=== PATIENT | male | born 1950 | race Caucasian/White ===

== ENCOUNTER 2020-04-30 09:53 | Outpatient (REF) | payer OTHER, SELFPAY ==
[2020-04-30 10:34] LABS: MANUAL DIFF FLAG NO
[2020-04-30 10:38] LABS: Basophils Absolute Auto 0.1 X10*3/uL (0.0-0.2); Basophils Percent Auto 0.7 % (0-2); Eosinophils Absolute Auto 0.1 X10*3/uL (0.0-0.4); Eosinophils Percent Auto 1.1 % (0-4); Hematocrit 48.6 % (42-52); Hemoglobin 16.6 g/dl (14.0-18.0); Imm Gran Abs Auto 0.08 X10*3/uL (0.00-0.03); Imm Gran Pct Auto 1.1 % (0.0-0.4); Lymphocytes Absolute Auto 1.9 X10*3/uL (1.2-4.9); Lymphocytes Percent Auto 26.5 % (20-40); Mean Corpuscular HGB Conc 34.2 g/dl (31.0-36.0); Mean Corpuscular Hemoglobin 30.8 pg (27.0-33.0); Mean Corpuscular Volume 90.2 fL (80-98); Mean Platelet Volume 10.9 fL (9.4-12.4); Monocytes Absolute Auto 0.9 X10*3/uL (0.1-1.2); Monocytes Percent Auto 12.1 % (2-11); Neutrophils Absolute Auto 4.2 X10*3/uL (2.0-8.3); Neutrophils Percent Auto 58.5 % (45-73); Platelet Count 165 X10*3/uL (160-400); Red Blood Count 5.39 X10*6/uL (4.60-5.80); Red Cell Distribution Width 12.3 % (11.0-16.0); White Blood Count 7.3 X10*3/uL (4.8-10.8)
[2020-04-30 11:10] LABS: Glucose Urine UA NEG (NEG); Leukocyte Esterase Urine NEG (NEG); Nitrite Urine NEG (NEG); Specific Gravity - Urine 1.025 (1.005-1.025); Urine Blood NEG (NEG); Urine Ketones NEG (NEG); Urine Protein NEG (NEG-TRACE)
[2020-04-30 11:11] LABS: Alanine Aminotransferase 32 U/L (0-40); Albumin Level 4.2 g/dL (3.5-5.0); Alkaline Phosphatase 65 U/L (39-117); Anion Gap 12 (12-20); Aspartate Amino Transferase 22 U/L (5-37); Bilirubin Total 0.6 mg/dL (0.0-1.0); Blood Urea Nitrogen 16 mg/dL (9-16); Calcium 8.2 mg/dL (8.4-10.2); Carbon Dioxide 28 mmol/L (22-29); Chloride 103 mmol/L (96-108); Estimated Glomerular Filt Rate > 60; Glucose Random 121 mg/dL (60-115); Lipase 13 U/L (8-78); Potassium 3.6 mmol/l (3.3-5.1); Sodium 139 mmol/L (135-145); Total Protein 6.5 g/dL (6.5-8.0)
[2020-04-30 11:14] LABS: Appearance Urine CLEAR; Color Urine YELLOW
[2020-04-30 11:21] LABS: Prostate Specific Antigen 0.38 ng/mL (<0.05-4.0); Thyroid Stimulating Hormone 1.45 mIU/mL (0.32-4.0)
[2020-04-30 11:24] LABS: ~HepC Num1 0.17 S/CO (0.00-0.79); ~Hepatitis C Antibody Nonreactive (Nonreactive)
== END 2020-04-30 09:54 | disposition home or self-care (01) ==
LOC: HO.LAB 09:53
PROVIDERS: PCP Internal Medicine; Visit Provider Internal Medicine
DX: E78.1 Pure hyperglyceridemia (principal); I10 Essential (primary) hypertension; Z12.5 Encounter for screening for malignant neoplasm of prostate; Z11.59 Encounter for screening for other viral diseases; D12.6 Benign neoplasm of colon, unspecified
CPT/HCPCS: 36415; 80053; 81003; 83690; 84153; 84443; 85025; 86803

== ENCOUNTER 2020-05-16 06:29 | Day surgery (SDC) | payer OTHER, SELFPAY ==
[2020-05-09 20:11] VITALS: BMI 32.5
--- NOTE | 2020-05-15 12:24 | P.CONAN_ITS ---
Documented by User: Una Diaz 05/15/20 12:25 HPI - Anesthesia Eval Consult details Narrative: 69yo M for Colonoscopy PMFSH Past Medical History Medical History (Updated 05/16/20 @ 07:54 by Luz Amos) Hypertension Increased BMI Obstructive sleep apnea syndrome in adult Tubular adenoma of colon Family History Family History Father Tubular adenoma Brother Tubular adenoma Surgical History Surgical History History of carpal tunnel surgery of right wrist History of colonoscopy History of left knee replacement Previous back surgery Social History Social History Are you a primary long term care pharmacist to a significant other at home: No Do you presently have visiting nurse or other home services: No Smoking Status: Never smoker Use of substances other than those prescribed or required for medical reasons: No Advance Directives: Yes Advance Directives Information Provided: Yes Advance Directives on File: Yes Advance Directives Date on File: 07/30/09 Meds Allergies Allergy/AdvReac Type Severity Reaction Status Date / Time lisinopril AdvReac Unknown cough Verified 04/30/20 11:08 Home Medications Medication Instructions Recorded Confirmed Type hydrochlorothiazide 25 mg tablet 25 mg PO DAILY 04/30/20 05/09/20 History valsartan 160 mg tablet 160 mg PO DAILY 04/30/20 05/16/20 History naproxen sodium [Aleve] 220 mg PO DAILY PRN 05/09/20 05/09/20 History Exam Exam Date and Time: May 15, 2020 1224 Height,Weight and Vital Signs: Height 6 ft Weight 108.862 kg Pertinent Lab Results Pertinent Lab Results: Laboratory Tests 04/30/20 04/30/20 10:20 10:20 WBC 7.3 Hgb 16.6 Hct 48.6 Plt Count 165 Sodium 139 Potassium 3.6 Chloride 103 BUN 16 Creatinine 1.08 Assessment and Plan Assessment Anesthesia Assessment: Chart Reviewed Documented by User: uLz Amos 05/16/20 07:56 [facility] Past Medical History Medical History (Updated 05/16/20 @ 07:54 by Luz Amos) Hypertension Increased BMI Obstructive sleep apnea syndrome in adult Tubular adenoma of colon Family History Family History Father Tubular adenoma Brother Tubular adenoma Family history of problems with anesthesia: No Surgical History Surgical History History of carpal tunnel surgery of right wrist History of colonoscopy History of left knee replacement Previous back surgery History of Problems with Anesthesia: No Social History Social History Are you a primary long term care pharmacist to a significant other at home: No Do you presently have visiting nurse or other home services: No Smoking Status: Never smoker Use of substances other than those prescribed or required for medical reasons: No Advance Directives: Yes Advance Directives Information Provided: Yes Advance Directives on File: Yes Advance Directives Date on File: 07/30/09 Meds Allergies Allergy/AdvReac Type Severity Reaction Status Date / Time lisinopril AdvReac Unknown cough Verified 04/30/20 11:08 Home Medications Medication Instructions Recorded Confirmed Type hydrochlorothiazide 25 mg tablet 25 mg PO DAILY 04/30/20 05/09/20 History valsartan 160 mg tablet 160 mg PO DAILY 04/30/20 05/16/20 History naproxen sodium [Aleve] 220 mg PO DAILY PRN 05/09/20 05/09/20 History Exam Height,Weight and Vital Signs: Vital Signs Temp Pulse Resp BP Pulse Ox 05/16/20 06:39 98 F 87 18 151/82 H 96 Airway Mallampati Class: II TM Dist: >3cm Neck ROM: Full Loose/Missing/Broken Teeth: No (Crowns intact) Heart: RRR Lungs: CTAB Assessment and Plan Assessment Anesthesia Assessment: Anesthesia Plan Discussed and Chart Reviewed Final Anesthetic Review NPO: Yes ASA Class: III Final Preanesthetic Review: No Changes in Pt Med Stat, Meds/Allgs Chart Reviewed, Consent Obtained/Reviewed and Anes Risks/Benef Reviewed Patient Risk: Intermediate Procedure Risk: Low Anesthetic Plan Anesthetic Plan: MAC: Disposition: Standard PACU
[2020-05-16 06:39] VITALS: BP 151/82; PULSE 87; RESP 18; TEMP 36.6; O2SAT 96
[2020-05-16] MEDS: Lactated Ringers 1,000 ML 100 ML IVCONT (06:55)
--- NOTE | 2020-05-16 07:10 | MHC.SHP ---
Pre-Procedural Eval Section A The patient is an INPATIENT: No Changes since office visit: Yes Patient answered all questions; No Cold of Flu in the past 2 weeks, No New Medical Problems and No Changes in Medication The History & Physical has been completed within 30 days and I have reviewed it.: Yes Section B Chief Complaint: tubular adenoma of colon Allergies: Allergies Allergy/AdvReac Type Severity Reaction Status Date / Time lisinopril AdvReac Unknown cough Verified 04/30/20 11:08 Plan Diagnosis/Plan: Unchanged Patient has been examined and remains a candidate for the planned procedure
[2020-05-16 08:17] VITALS: BP 104/63; PULSE 82; RESP 20; TEMP 36.5; O2SAT 94
--- NOTE | 2020-05-16 08:25 | P.OP_ITS ---
Operative Note Operative Note Date of Service: 05/16/20 Narrative: Preoperative diagnosis: History of colon polyps Postoperative diagnosis: Diverticulosis and internal hemorrhoids Procedure: Colonoscopy Anesthesia: Monitored anesthesia care Specimens: None Estimated blood loss: None Other findings: None Immediate complications: None Indications: This is a 69-year-old gentleman with a history of adenomatous polyps who presents for routine colonoscopy Procedure in detail: Patient in left lateral decubitus position, time-out procedure was performed. Adequate sedation was then obtained. Rectal examination was performed and was unremarkable. The flexible pediatric co lonoscope was introduced and was gradually advanced through the bowel to the level of the cecum. The prep was good, with some particulate matter remaining half that could be irrigated away. Good visualization was obtained. The cecal pouch, ileocecal valve and appendiceal orifice were visualized and appeared normal. The ileocecal valve was intubated. The terminal ileum also appeared normal. The scope was then drawn back into the cecum and was slowly withdrawn, visualizing all mucosal surfaces, was retroflexed within the rectum and was then straightened and withdrawn. Scattered diverticulosis was seen, primarily in the left and sigmoid colon. Internal hemorrhoids were present. No other abnormalities were identified. He tolerated the procedure well. Based upon findings and history, next routine colonoscopy will be due in 5 years.
[2020-05-16 08:31] VITALS: BP 113/76; PULSE 87; RESP 20; TEMP 36.6; O2SAT 92
--- NOTE | 2020-05-16 08:51 | HO.POSTANES ---
Post Anesthesia Evaluation Post Anesthesia Evaluation Vital Signs: Vital Signs Temp Pulse Resp BP Pulse Ox 05/16/20 08:31 97.9 F 87 20 113/76 92 05/16/20 08:17 97.7 F 82 20 104/63 94 05/16/20 06:39 98 F 87 18 151/82 H 96 Anesthesia: Monitored Mental Status: Awake Pain Control: Satisfactory Nausea/Vomiting: None Hydration: Adequate Anesthesia-Related Issues: No Anes. Related Issues
== END 2020-05-16 08:55 | disposition home or self-care (01) ==
PROVIDERS: PCP Internal Medicine; Visit Provider Surgery
PROC: 0DJD8ZZ Inspection of Lower Intestinal Tract, Via Natural or Artificial Opening Endoscopic (ICD-10-PCS; CPT 45378; principal; 2020-05-16 07:30)
DX: Z12.11 Encounter for screening for malignant neoplasm of colon (principal); Z86.010 Personal history of colon polyps; K57.30 Diverticulosis of large intestine without perforation or abscess without bleeding; K64.8 Other hemorrhoids; I10 Essential (primary) hypertension; G47.33 Obstructive sleep apnea (adult) (pediatric); Z79.899 Other long term (current) drug therapy; Z88.8 Allergy status to other drugs, medicaments and biological substances
CPT/HCPCS: 45378

== ENCOUNTER → 2020-06-11 13:46 | Outpatient (BNVA) | payer OTHER, SELFPAY | PROVIDERS: PCP Internal Medicine; Visit Provider Internal Medicine | DX: Z77.21 Contact with and (suspected) exposure to potentially hazardous body fluids (principal) | CPT/HCPCS: 36415; 84450; 85025; 86803; 87389 ==

== ENCOUNTER 2020-06-19 11:09 | Outpatient (REF) | payer OTHER, SELFPAY ==
[2020-06-19 12:09] LABS: MANUAL DIFF FLAG NO
[2020-06-19 12:15] LABS: Basophils Percent Auto 0.4 % (0-2); Eosinophils Percent Auto 0.3 % (0-4); Hematocrit 49.9 % (42-52); Hemoglobin 16.9 g/dl (14.0-18.0); Imm Gran Abs Auto 0.07 X10*3/uL (0.00-0.03); Imm Gran Pct Auto 0.8 % (0.0-0.4); Lymphocytes Absolute Auto 1.9 X10*3/uL (1.2-4.9); Lymphocytes Percent Auto 20.6 % (20-40); Mean Corpuscular HGB Conc 33.9 g/dl (31.0-36.0); Mean Corpuscular Hemoglobin 30.6 pg (27.0-33.0); Mean Corpuscular Volume 90.4 fL (80-98); Mean Platelet Volume 11.4 fL (9.4-12.4); Monocytes Percent Auto 11.2 % (2-11); Neutrophils Percent Auto 66.7 % (45-73); Platelet Count 187 X10*3/uL (160-400); Red Blood Count 5.52 X10*6/uL (4.60-5.80); Red Cell Distribution Width 12.5 % (11.0-16.0)
[2020-06-19 12:20] LABS: Estimated Average Glucose 108 mg/dL; Hemoglobin A1c % 5.4 %
[2020-06-19 12:22] LABS: Glucose Urine UA NEG (NEG); Leukocyte Esterase Urine NEG (NEG); Nitrite Urine NEG (NEG); Specific Gravity - Urine >= 1.030 (1.005-1.025); Urine Blood NEG (NEG); Urine Ketones NEG (NEG); Urine Protein NEG (NEG-TRACE)
[2020-06-19 12:23] LABS: Appearance Urine CLEAR; Color Urine YELLOW
[2020-06-19 12:51] LABS: Cholesterol 173 mg/dL; Glucose Fasting 105 mg/dL (60-99); HDL Cholesterol 47 mg/dL; LDL Cholesterol Calculated 109 mg/dl; Triglycerides 87 mg/dL
== END 2020-06-19 11:10 | disposition home or self-care (01) ==
LOC: HO.LAB 11:09
PROVIDERS: PCP Internal Medicine; Visit Provider Internal Medicine
DX: E78.1 Pure hyperglyceridemia (principal); R73.01 Impaired fasting glucose; R10.9 Unspecified abdominal pain
CPT/HCPCS: 36415; 80061; 81003; 82947; 83036; 85025; 87086

== ENCOUNTER 2020-07-23 08:50 | Outpatient (REF) | payer OTHER, SELFPAY ==
--- NOTE | 2020-07-23 | US_ITS ---
EXAMINATION: US ABDOMINAL AORTA CLINICAL INFORMATION: Evaluate for aneurysm. History of smoking. COMPARISON: None TECHNIQUE: Routine retroperitoneal ultrasound of the abdominal aorta was performed. FINDINGS: The abdominal aorta is normal in course with a few echogenic atherosclerotic plaques seen. The proximal abdominal aorta measures 3.0 x 3.0 cm in AP and transverse dimensions. The mid abdominal aorta measures 2.8 x 2.0 cm in AP and transverse dimensions. The distal abdominal aorta measures 2.1 x 2.8 cm in AP and transverse dimensions. Peak systolic velocity of the abdominal aorta measures 83.2 cm. The right common iliac artery measures 1.2 cm and the left common iliac artery measures 1.2 cm. US/US abdominal aortic aneurysm IMPRESSION: No evidence of AAA. Small amount of atherosclerotic plaque in the abdominal aorta.
== END 2020-07-23 08:51 | disposition home or self-care (01) ==
LOC: HO.US 08:50
PROVIDERS: PCP Internal Medicine; Visit Provider Internal Medicine
DX: Z13.6 Encounter for screening for cardiovascular disorders (principal)
CPT/HCPCS: 76706

== ENCOUNTER 2020-11-14 08:15 | Outpatient (REF) | payer OTHER, SELFPAY ==
[2020-11-14 08:44] LABS: Glucose Urine UA NEG (NEG); Leukocyte Esterase Urine NEG (NEG); Nitrite Urine NEG (NEG); Specific Gravity - Urine 1.025 (1.005-1.025); Urine Blood NEG (NEG); Urine Ketones NEG (NEG); Urine Protein NEG (NEG-TRACE)
[2020-11-14 08:46] LABS: Hematocrit 48.8 % (42-52); Hemoglobin 16.6 g/dl (14.0-18.0); Mean Corpuscular Hemoglobin 30.8 pg (27.0-33.0); Mean Corpuscular Volume 90.5 fL (80-98); Mean Platelet Volume 11.3 fL (9.4-12.4); Platelet Count 159 X10*3/uL (160-400); Red Blood Count 5.39 X10*6/uL (4.60-5.80); Red Cell Distribution Width 12.8 % (11.0-16.0); White Blood Count 7.4 X10*3/uL (4.8-10.8)
[2020-11-14 08:47] LABS: Appearance Urine CLEAR; Color Urine YELLOW
[2020-11-14 09:07] LABS: Alanine Aminotransferase 34 U/L (0-40); Albumin Level 4.3 g/dL (3.5-5.0); Alkaline Phosphatase 69 U/L (39-117); Anion Gap 15 (12-20); Aspartate Amino Transferase 23 U/L (5-37); Bilirubin Total 0.7 mg/dL (0.0-1.0); Blood Urea Nitrogen 12 mg/dL (9-16); Calcium 9.1 mg/dL (8.4-10.2); Carbon Dioxide 27 mmol/L (22-29); Chloride 102 mmol/L (96-108); Cholesterol 179 mg/dL; Estimated Glomerular Filt Rate > 60; Glucose Random 119 mg/dL (60-115); HDL Cholesterol 41 mg/dL; LDL Cholesterol Calculated 114 mg/dl; Potassium 3.5 mmol/L (3.3-5.1); Sodium 140 mmol/L (135-145); Total Protein 6.5 g/dL (6.5-8.0); Triglycerides 120 mg/dL
[2020-11-14 09:22] LABS: Estimated Average Glucose 111 mg/dL; Hemoglobin A1c % 5.5 %; Thyroid Stimulating Hormone 1.72 uIU/mL (0.32-4.0)
== END 2020-11-14 08:16 | disposition home or self-care (01) ==
LOC: HO.LAB 08:15
PROVIDERS: PCP Internal Medicine; Visit Provider Internal Medicine
DX: I10 Essential (primary) hypertension (principal); R73.01 Impaired fasting glucose; E78.1 Pure hyperglyceridemia
CPT/HCPCS: 36415; 80053; 80061; 81003; 83036; 84443; 85027

== ENCOUNTER 2021-05-20 11:07 | Outpatient (REF) | payer OTHER, SELFPAY ==
[2021-05-20 11:40] LABS: Hematocrit 47.3 % (42.0-52.0); Hemoglobin 16.1 g/dl (14.0-18.0); Mean Corpuscular Hemoglobin 31.1 pg (27.0-33.0); Mean Corpuscular Volume 91.5 fL (80.0-98.0); Mean Platelet Volume 11.4 fL (9.4-12.4); Platelet Count 158 X10*3/uL (160-400); Red Blood Count 5.17 X10*6/uL (4.60-5.80); Red Cell Distribution Width 12.7 % (11.0-16.0); White Blood Count 8.7 X10*3/uL (4.8-10.8)
[2021-05-20 12:09] LABS: Alanine Aminotransferase 36 U/L (0-40); Albumin Level 4.1 g/dL (3.5-5.0); Alkaline Phosphatase 64 U/L (39-117); Anion Gap 11 (12-20); Aspartate Amino Transferase 24 U/L (5-37); Bilirubin Total 1.2 mg/dL (0.0-1.0); Blood Urea Nitrogen 16 mg/dL (9-16); Calcium 9.1 mg/dL (8.4-10.2); Carbon Dioxide 27 mmol/L (22-29); Chloride 106 mmol/L (96-108); Cholesterol 175 mg/dL; Estimated Glomerular Filt Rate > 60; Glucose Random 110 mg/dL (60-115); HDL Cholesterol 43 mg/dL; LDL Cholesterol Calculated 108 mg/dl; Potassium 4.3 mmol/L (3.3-5.1); Sodium 140 mmol/L (135-145); Total Protein 6.4 g/dL (6.5-8.0); Triglycerides 123 mg/dL
[2021-05-20 12:30] LABS: Prostate Specific Antigen 0.37 ng/mL (<0.05-4.0); Thyroid Stimulating Hormone 1.88 uIU/mL (0.32-4.0)
[2021-05-20 13:57] LABS: Appearance Urine CLEAR; Color Urine YELLOW; Glucose Urine UA NEG (NEG); Leukocyte Esterase Urine NEG (NEG); Nitrite Urine NEG (NEG); Urine Blood NEG (NEG); Urine Ketones NEG (NEG); Urine Protein NEG (NEG-TRACE)
== END 2021-05-20 11:08 | disposition home or self-care (01) ==
LOC: HO.LAB 11:07
PROVIDERS: PCP Internal Medicine; Visit Provider Internal Medicine
DX: E78.00 Pure hypercholesterolemia, unspecified (principal); I10 Essential (primary) hypertension; Z12.5 Encounter for screening for malignant neoplasm of prostate
CPT/HCPCS: 36415; 80053; 80061; 81003; 84153; 84443; 85027

== ENCOUNTER 2021-10-09 09:03 | Outpatient (REF) | payer OTHER, SELFPAY ==
[2021-10-09 11:34] LABS: Estimated Average Glucose 108 mg/dL; Hemoglobin A1c % 5.4 %
[2021-10-09 11:52] LABS: Alanine Aminotransferase 66 U/L (0-40); Albumin Level 4.4 g/dL (3.5-5.0); Alkaline Phosphatase 76 U/L (39-117); Anion Gap 14 (12-20); Aspartate Amino Transferase 32 U/L (5-37); Blood Urea Nitrogen 18 mg/dL (9-16); Calcium 9.4 mg/dL (8.4-10.2); Carbon Dioxide 27 mmol/L (22-29); Chloride 106 mmol/L (96-108); Cholesterol 194 mg/dL; Estimated Glomerular Filt Rate > 60; Glucose Random 112 mg/dL (60-115); HDL Cholesterol 39 mg/dL; LDL Cholesterol Calculated 140 mg/dl; Magnesium 2.4 mg/dL (1.6-2.6); Potassium 4.5 mmol/L (3.3-5.1); Sodium 142 mmol/L (135-145); Total Protein 6.9 g/dL (6.5-8.0); Triglycerides 75 mg/dL
== END 2021-10-09 09:04 | disposition home or self-care (01) ==
LOC: HO.LAB 09:03
PROVIDERS: PCP Internal Medicine; Visit Provider Internal Medicine
DX: I10 Essential (primary) hypertension (principal); R73.01 Impaired fasting glucose
CPT/HCPCS: 36415; 80053; 80061; 83036; 83735

== ENCOUNTER → 2021-10-30 09:53 | Outpatient (BNVA) | payer OTHER, SELFPAY | PROVIDERS: PCP Internal Medicine; Referring Provider Internal Medicine; Visit Provider Internal Medicine | DX: I25.10 Atherosclerotic heart disease of native coronary artery without angina pectoris (principal); I10 Essential (primary) hypertension; I44.0 Atrioventricular block, first degree; G47.33 Obstructive sleep apnea (adult) (pediatric); E78.5 Hyperlipidemia, unspecified; E66.01 Morbid (severe) obesity due to excess calories; Z68.34 Body mass index [BMI] 34.0-34.9, adult | CPT/HCPCS: 93005 ==

== ENCOUNTER 2021-12-04 09:21 | Outpatient (REF) | payer OTHER, SELFPAY ==
[2021-12-04 11:02] LABS: Alanine Aminotransferase 41 U/L (0-40); Aspartate Amino Transferase 25 U/L (5-37); Glucose Fasting 112 mg/dL (60-99)
== END 2021-12-04 09:22 | disposition home or self-care (01) ==
LOC: HO.LAB 09:21
PROVIDERS: PCP Internal Medicine; Visit Provider Internal Medicine
DX: R94.5 Abnormal results of liver function studies (principal); R73.01 Impaired fasting glucose
CPT/HCPCS: 36415; 82947; 84450; 84460

== ENCOUNTER 2022-02-23 08:57 | Outpatient (REF) | payer OTHER, SELFPAY ==
[2022-02-23 11:35] LABS: Alanine Aminotransferase 38 U/L (0-40); Albumin Level 4.4 g/dL (3.5-5.0); Alkaline Phosphatase 81 U/L (39-117); Anion Gap 17 (12-20); Aspartate Amino Transferase 25 U/L (5-37); Bilirubin Total 1.3 mg/dL (0.0-1.0); Blood Urea Nitrogen 16 mg/dL (9-16); Calcium 9.3 mg/dL (8.4-10.2); Carbon Dioxide 26 mmol/L (22-29); Chloride 102 mmol/L (96-108); Cholesterol 143 mg/dL; Estimated Glomerular Filt Rate > 60; Glucose Random 101 mg/dL (60-115); HDL Cholesterol 46 mg/dL; LDL Cholesterol Calculated 78 mg/dl; Potassium 4.3 mmol/L (3.3-5.1); Sodium 141 mmol/L (135-145); Total Protein 6.9 g/dL (6.5-8.0); Triglycerides 97 mg/dL
[2022-02-23 11:38] LABS: Estimated Average Glucose 103 mg/dL; Hemoglobin A1c % 5.2 %
== END 2022-02-23 08:58 | disposition home or self-care (01) ==
LOC: HO.LAB 08:57
PROVIDERS: PCP Internal Medicine; Visit Provider Internal Medicine
DX: R73.01 Impaired fasting glucose (principal); E78.00 Pure hypercholesterolemia, unspecified
CPT/HCPCS: 36415; 80053; 80061; 83036

== ENCOUNTER 2022-06-25 06:57 | Outpatient (REF) | payer OTHER, SELFPAY ==
--- NOTE | ~2022-06-25 | XR_ITS ---
EXAMINATION: XR FOOT, RIGHT CLINICAL INFORMATION: Pain at the right 1st MTP joint region. COMPARISON: None TECHNIQUE: AP, lateral, and oblique views of the right foot. FINDINGS: Kaejokfg-bq-rswcbd osteoarthritic changes are noted at 1st MTP joint with narrowing of the joint space, subarticular sclerosis and irregularity of the articular margins as well as marginal osteophytic changes. No focal erosion is seen. No evidence of soft tissue calcifications. Normal osseous mineralization. No evidence of acute fracture or dislocation. As seen on the lateral view there is a prominent osteophyte with an adjacent well-corticated 1.2 cm ossification on the dorsal aspect of the head of the 1st metatarsal with surrounding mild soft tissue swelling. Small posterior and plantar calcaneal spurs. XR/XR foot RT min 3V IMPRESSION: Euohfjtt-xp-tupvsk arthritic changes at the right 1st MTP joint with prominent osteophytes as well as a 1.2 cm well-corticated ossific density on the dorsal aspect of the 1st metatarsal head which may represent an osteophyte or sequela of prior trauma.
== END 2022-06-25 06:58 | disposition home or self-care (01) ==
LOC: HO.XRAY 06:57
PROVIDERS: PCP Internal Medicine; Visit Provider Internal Medicine
DX: M79.671 Pain in right foot (principal)
CPT/HCPCS: 73630

== ENCOUNTER 2022-11-11 07:00 | Outpatient (REF) | payer OTHER, SELFPAY ==
[2022-11-11 07:15] LABS: MANUAL DIFF FLAG NO
[2022-11-11 08:10] LABS: Basophils Absolute Auto 0.1 X10*3/uL (0.0-0.2); Basophils Percent Auto 0.8 % (0-2); Eosinophils Absolute Auto 0.2 X10*3/uL (0.0-0.4); Eosinophils Percent Auto 1.7 % (0-4); Hemoglobin 16.3 g/dl (14.0-18.0); Imm Gran Abs Auto 0.12 X10*3/uL (0.00-0.03); Imm Gran Pct Auto 1.3 % (0.0-0.4); Lymphocytes Absolute Auto 2.2 X10*3/uL (1.2-4.9); Lymphocytes Percent Auto 22.7 % (20-40); Mean Corpuscular Hemoglobin 30.9 pg (27.0-33.0); Mean Corpuscular Volume 90.9 fL (80.0-98.0); Mean Platelet Volume 11.7 fL (9.4-12.4); Monocytes Absolute Auto 1.1 X10*3/uL (0.1-1.2); Monocytes Percent Auto 11.4 % (2-11); Neutrophils Absolute Auto 5.9 x10*3/uL (2.0-8.3); Neutrophils Percent Auto 62.1 % (45-73); Platelet Count 167 X10*3/uL (160-400); Red Blood Count 5.28 X10*6/uL (4.60-5.80); Red Cell Distribution Width 12.9 % (11.0-16.0); White Blood Count 9.5 X10*3/uL (4.8-10.8)
[2022-11-11 08:11] LABS: Appearance Urine Clear; Color Urine Yellow; Glucose Urine UA Negative (Negative); Leukocyte Esterase Urine Negative (Negative); Nitrite Urine Negative (Negative); PH 5.5 (5.0-9.0); Specific Gravity - Urine 1.025 (1.005-1.025); Urine Blood Negative (Negative); Urine Ketones Negative (Negative); Urine Protein Negative (Neg-Trace)
[2022-11-11 08:58] LABS: Alanine Aminotransferase 40 U/L (0-40); Albumin Level 4.2 g/dL (3.5-5.0); Alkaline Phosphatase 84 U/L (39-117); Anion Gap 13 (12-20); Aspartate Amino Transferase 25 U/L (5-37); Bilirubin Total 1.1 mg/dL (0.0-1.0); Blood Urea Nitrogen 18 mg/dL (9-16); Calcium 9.5 mg/dL (8.4-10.2); Carbon Dioxide 28 mmol/L (22-29); Chloride 104 mmol/L (96-108); Cholesterol 137 mg/dL; Estimated Glomerular Filt Rate > 60; Glucose Random 109 mg/dL (60-115); HDL Cholesterol 36 mg/dL; LDL Cholesterol Calculated 72 mg/dl; Potassium 3.8 mmol/L (3.3-5.1); Sodium 141 mmol/L (135-145); Total Protein 6.3 g/dL (6.5-8.0); Triglycerides 146 mg/dL
[2022-11-11 09:17] LABS: Thyroid Stimulating Hormone 2.64 uIU/mL (0.32-4.0)
== END 2022-11-11 07:01 | disposition home or self-care (01) ==
LOC: HO.LAB 07:00
PROVIDERS: PCP Internal Medicine; Visit Provider Internal Medicine
DX: I10 Essential (primary) hypertension (principal); R73.01 Impaired fasting glucose; E78.00 Pure hypercholesterolemia, unspecified
CPT/HCPCS: 36415; 80053; 80061; 81003; 84443; 85025

== ENCOUNTER → 2022-12-03 13:17 | Outpatient (BNVA) | payer OTHER, SELFPAY | PROVIDERS: PCP Internal Medicine; Referring Provider Internal Medicine; Visit Provider Internal Medicine | DX: I25.10 Atherosclerotic heart disease of native coronary artery without angina pectoris (principal); I10 Essential (primary) hypertension; I44.0 Atrioventricular block, first degree | CPT/HCPCS: 93005 ==

== ENCOUNTER → 2023-01-13 12:56 | Outpatient (REF) | payer OTHER, SELFPAY | LOC: HO.SL 12:56 | PROVIDERS: PCP Internal Medicine; Visit Provider Internal Medicine | DX: G47.33 Obstructive sleep apnea (adult) (pediatric) (principal) | CPT/HCPCS: 95806 ==

== ENCOUNTER → 2023-01-13 13:12 | Outpatient (BNV) | payer OTHER, SELFPAY | PROVIDERS: PCP Internal Medicine; Visit Provider Internal Medicine | DX: G47.33 Obstructive sleep apnea (adult) (pediatric) (principal) | CPT/HCPCS: 95806 ==

== ENCOUNTER 2023-05-27 08:18 | Outpatient (REF) | payer OTHER, SELFPAY ==
--- NOTE | ~2023-05-27 | XR_ITS ---
EXAMINATION: UPRIGHT VIEWS OF BOTH KNEES 2 VIEWS OF THE RIGHT KNEE CLINICAL INFORMATION: Reason for Exam M25.569 - Pain in unspecified knee. COMPARISON: X-rays of the knees 04/19/2018. TECHNIQUE: Upright AP view of both knees. Additional patella and lateral upright view of the right knee. FINDINGS: RIGHT KNEE: Medial compartment: There is joint space narrowing and marginal osteophytes indicative of cjat-fy-qfrocmrr osteoarthritis with degenerative changes increased compared to prior. Lateral compartment: Small marginal osteophytes without joint space narrowing indicative of mild arthrosis unchanged. Patellofemoral compartment: Marginal osteophytes with subchondral cystic change without joint space narrowing. Overall ibjc-es-perrnuky arthrosis. Trace effusion. Small areas of calcification or ossification posterior to the proximal tibia. This could reflect loose bodies within a Dockery's cyst versus unrelated soft tissue calcification. LEFT KNEE LIMITED AP UPRIGHT: Postoperative changes related to unicompartmental arthroplasty of the medial compartment. The components have the usual appearance. No periprosthetic fracture or suspicious area of lucency. XR/XR knee standing BI IMPRESSION: RIGHT KNEE: Tricompartmental osteoarthritis with degenerative changes most prominent in the medial compartment being yvzq-bh-zhylllyr and likely slightly progressed compared with the 2018 x-ray. LEFT KNEE Limited: 1. Tricompartmental arthroplasty without complication by x-ray. 2. Possible loose bodies within a Dockery's cyst versus soft tissue calcification.
--- NOTE | ~2023-05-27 | XR_ITS ---
EXAMINATION: UPRIGHT VIEWS OF BOTH KNEES 2 VIEWS OF THE RIGHT KNEE CLINICAL INFORMATION: Reason for Exam M25.569 - Pain in unspecified knee. COMPARISON: X-rays of the knees 04/19/2018. TECHNIQUE: Upright AP view of both knees. Additional patella and lateral upright view of the right knee. FINDINGS: RIGHT KNEE: Medial compartment: There is joint space narrowing and marginal osteophytes indicative of iloq-lq-dsnqmdig osteoarthritis with degenerative changes increased compared to prior. Lateral compartment: Small marginal osteophytes without joint space narrowing indicative of mild arthrosis unchanged. Patellofemoral compartment: Marginal osteophytes with subchondral cystic change without joint space narrowing. Overall ctcr-md-icnrznce arthrosis. Trace effusion. Small areas of calcification or ossification posterior to the proximal tibia. This could reflect loose bodies within a Dockery's cyst versus unrelated soft tissue calcification. LEFT KNEE LIMITED AP UPRIGHT: Postoperative changes related to unicompartmental arthroplasty of the medial compartment. The components have the usual appearance. No periprosthetic fracture or suspicious area of lucency. XR/XR knee RT 2V IMPRESSION: RIGHT KNEE: Tricompartmental osteoarthritis with degenerative changes most prominent in the medial compartment being sfsd-db-iadwzjaw and likely slightly progressed compared with the 2018 x-ray. LEFT KNEE Limited: 1. Tricompartmental arthroplasty without complication by x-ray. 2. Possible loose bodies within a Dockery's cyst versus soft tissue calcification.
== END 2023-05-27 08:19 | disposition home or self-care (01) ==
LOC: HO.HOSX 08:18
PROVIDERS: Visit Provider Orthopaedic Surgery
DX: M17.11 Unilateral primary osteoarthritis, right knee (principal)
CPT/HCPCS: 20610; 73560; 73565; J0665; J1100

== ENCOUNTER 2023-05-27 08:23 | Outpatient (AMB) | payer OTHER, SELFPAY ==
--- NOTE | 2023-05-27 08:35 | A.OFFVIS_ITS ---
Intake Intake Visit Reasons: New Prob - Right Knee Pain Intake Note: Cedric is a 72 year old male who presents today with complaints of right knee pain. He has pain in the right knee for months now, over the lastr month his pain has became particularly worse. He has pain and clicking with ambulation. Pain is increased with prolonged walking and standing. He takes Aleve in the morning which gives mild relief. Allergies No Known Allergies Allergy (Verified 05/27/23 08:37) HPI New Prob - Right Knee Pain HPI Details Cedric is a 72 year old man who presents with complaints of right knee pain. He complains of several months of right knee pain, worse with prolonged walking, standing, or using stairs. He says his pain became worse muhammad usual in the last month, and he is concerned about a clicking sensation in his knee. He finds mild relief from Aleve in the mornings, and denies any other treatment. FORMERLY [facility], [facility] Medical History (Updated 06/04/23 @ 10:53 by Mao Castro MD) Atherosclerotic cardiovascular disease Increased BMI Obstructive sleep apnea syndrome in adult Tubular adenoma of colon Hypertension Surgical History History of carpal tunnel surgery of right wrist History of colonoscopy History of left knee replacement Previous back surgery Family History Father Tubular adenoma Brother Tubular adenoma Social History Are you a primary wound care physician to a significant other at home: No Do you presently have visiting nurse or other home services: No Alcohol intake: current Alcohol intake frequency: a few times a week Alcohol type: beer Patient Tobacco Use Status: Former Tobacco user Quit Date: 1982 Years Smoked: 15 +/- Advance Directives Date on File: 07/30/09 Review of Systems Const All systems reviewed & are unremarkable except as noted in HPI and below Physical Exam Const General: no acute distress, alert and awake Orientation/consciousness: patient oriented x3 HEENT Head: Yes normocephalic and Yes atraumatic Eyes EOM: EOMs intact bilaterally Resp Effort & Inspection: normal respiratory effort and able to speak in complete sentences Cardio Jugular venous distension: no JVD Skin General skin exam: turgor normal Rashes: no rashes Neuro General: patient oriented x3 Extrem Other: Right Knee: Medial compartment TTP Varus alignement Minimal effusion Psych Appearance: grossly normal Affect: normal affect Attitude: cooperative Office Procedures Joint Injection/Drain Joint Injection/Drain Details: Injected 1 mL of Decadron and 3 mL 1% lidocaine and 3 mL of 0.25% Marcaine. Site was prepped using aseptic technique. Patient tolerated the procedure well. Primary Site: right knee Approach Used: anterolateral Coding - Large joint Procedure code (CPT) selection complete Results Reviewed Results Reviewed: I personally reviewed relevant radiographs Medial compartment OA right knee Assessment & Plan Assessment & Plan (1) Arthritis of right knee: Code(s): M17.11 - Unilateral primary osteoarthritis, right knee Plan: This is a 72 year old man with right knee pain. He has pain with daily activity, worse with prolonged ambulation, standing, and stairs. He denies any prior treatment and finds mild relief from Aleve. I discussed his diagnosis and treatment options. I injected his right knee. 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 Orders: Orders XR knee standing BI 05/27/23 M25.569 - Pain in unspecified knee XR knee RT 2V 05/27/23 M25.569 - Pain in unspecified knee Coding Level of Care Code New Pt Level 3 (74025) Diagnoses Arthritis of right knee M17.11 CPT Codes Coding - Large joint: 86463 - Large joint ([id number])
== END 2023-05-27 09:26 | disposition home or self-care (01) ==
PROVIDERS: PCP Internal Medicine; Visit Provider Orthopaedic Surgery
DX: M17.11 Unilateral primary osteoarthritis, right knee (principal)
CPT/HCPCS: 20610; 99203

== ENCOUNTER 2023-05-28 07:17 | Outpatient (REF) | payer OTHER, SELFPAY ==
[2023-05-28 07:31] LABS: MANUAL DIFF FLAG NO
[2023-05-28 07:44] LABS: Basophils Percent Auto 0.3 % (0-2); Eosinophils Percent Auto 0.3 % (0-4); Hematocrit 48.2 % (42.0-52.0); Hemoglobin 16.5 g/dl (14.0-18.0); Imm Gran Abs Auto 0.11 X10*3/uL (0.00-0.03); Imm Gran Pct Auto 0.8 % (0.0-0.4); Lymphocytes Absolute Auto 2.7 X10*3/uL (1.2-4.9); Lymphocytes Percent Auto 18.5 % (20-40); Mean Corpuscular HGB Conc 34.2 g/dl (31.0-36.0); Mean Corpuscular Hemoglobin 30.4 pg (27.0-33.0); Mean Corpuscular Volume 88.9 fL (80.0-98.0); Monocytes Absolute Auto 1.4 X10*3/uL (0.1-1.2); Monocytes Percent Auto 9.9 % (2-11); Neutrophils Absolute Auto 10.1 x10*3/uL (2.0-8.3); Neutrophils Percent Auto 70.2 % (45-73); Platelet Count 189 X10*3/uL (160-400); Red Blood Count 5.42 X10*6/uL (4.60-5.80); Red Cell Distribution Width 12.6 % (11.0-16.0); White Blood Count 14.3 X10*3/uL (4.8-10.8)
[2023-05-28 07:58] LABS: Estimated Average Glucose 108 mg/dL; Hemoglobin A1c % 5.4 % (<6.0)
[2023-05-28 08:17] LABS: Alanine Aminotransferase 36 U/L (0-40); Albumin Level 4.3 g/dL (3.5-5.0); Alkaline Phosphatase 86 U/L (39-117); Anion Gap 12 (12-20); Aspartate Amino Transferase 24 U/L (5-37); Bilirubin Total 1.2 mg/dL (0.0-1.0); Blood Urea Nitrogen 19 mg/dL (9-16); Calcium 9.3 mg/dL (8.4-10.2); Carbon Dioxide 29 mmol/L (22-29); Chloride 103 mmol/L (96-108); Cholesterol 164 mg/dL (<200); Estimated Glomerular Filt Rate > 60; Glucose Random 117 mg/dL (60-115); HDL Cholesterol 45 mg/dL (>40); LDL Cholesterol Calculated 100 mg/dL (<100); Potassium 4.1 mmol/L (3.3-5.1); Sodium 140 mmol/L (135-145); Triglycerides 95 mg/dL (<150)
[2023-05-28 08:37] LABS: Thyroid Stimulating Hormone 1.43 uIU/mL (0.32-4.0)
== END 2023-05-28 07:18 | disposition home or self-care (01) ==
LOC: HO.LAB 07:17
PROVIDERS: Visit Provider Internal Medicine
DX: I10 Essential (primary) hypertension (principal); R73.01 Impaired fasting glucose; E78.00 Pure hypercholesterolemia, unspecified
CPT/HCPCS: 36415; 80053; 80061; 83036; 84443; 85025

== ENCOUNTER 2023-07-02 12:49 | Outpatient (AMB) | payer OTHER, SELFPAY ==
--- NOTE | 2023-07-02 12:51 | MHC.OFFVIS ---
Intake Vital Signs 07/02/23 13:10 Height 5 ft 11 in Weight 251 lb BMI 35.0 Intake Visit Reasons: OV- Right Knee Pain Intake Note: Cedric is a 72 year old male who presents today for a follow up of his right knee pain, Last injection 05/27/2023. At his last visit we discussed a possible unloading brace. Patient states that there was no improvement after the last injection. Patient states that he would like to have an MRI done. Allergies No Known Allergies Allergy (Verified 07/02/23 13:13) HPI OV- Right Knee Pain HPI Details I injected Cedric's knee ~ 5 weeks ago and he is feeling ok'. He has good days and bad days but the past few days have been surya. He describes pain in his medial right knee. It is worse with stairs and after not moving. He has medial compartment OA on the right and, on the left, had a UKA several years ago at an [facility]. [facility] Medical History Atherosclerotic cardiovascular disease Increased BMI Obstructive sleep apnea syndrome in adult Tubular adenoma of colon Hypertension Surgical History History of colonoscopy History of carpal tunnel surgery of right wrist History of left knee replacement Previous back surgery Family History Father Tubular adenoma Brother Tubular adenoma Social History Are you a primary pediatric care coordinator to a significant other at home: No Do you presently have visiting nurse or other home services: No Alcohol intake: current Alcohol intake frequency: a few times a week Alcohol type: beer Patient Tobacco Use Status: Former Tobacco user Quit Date: 1982 Years Smoked: 15 +/- Advance Directives Date on File: 07/30/09 Physical Exam Vital Signs: BMI result Body Mass Index 35.0 Extrem Other: TTP medial compartment right knee 1+ effusion right knee 1+ Varus instability right knee Assessment & Plan Assessment & Plan (1) Knee effusion, right: Code(s): M25.461 - Effusion, right knee Plan: MRI for effusion and complaints of catching, clicking. I recommend viscosupplementation as steroid not helpful. Medial unloading brace for varus instability. Orders: Orders MR knee RT wo con Today M25.461 - Effusion, right knee Coding Level of Care Code Est Pt Level 4 (54494) Diagnoses Knee effusion, right M25.461
[2023-07-02 13:10] VITALS: BMI 35.0
== END 2023-07-02 14:22 | disposition home or self-care (01) ==
PROVIDERS: PCP Internal Medicine; Visit Provider Orthopaedic Surgery
DX: M25.461 Effusion, right knee (principal)
CPT/HCPCS: 99214

== ENCOUNTER → 2023-07-02 12:49 | Outpatient (BNVA) | payer OTHER, SELFPAY | PROVIDERS: PCP Internal Medicine; Visit Provider Orthopaedic Surgery ==

== ENCOUNTER 2023-07-05 17:55 | Outpatient (REF) | payer OTHER, SELFPAY ==
--- NOTE | ~2023-07-05 | MR_ITS ---
EXAMINATION: MR KNEE WITHOUT CONTRAST, RIGHT CLINICAL INFORMATION: Effusion right knee. COMPARISON: X-ray the right knee April 2023. TECHNIQUE: MRI of the knee without contrast was performed using routine sequences on a high-field scanner. FINDINGS: MENISCI: Medial Meniscus: There is oblique increased signal extending to the posterior tibial articular surface of the posterior horn involving the middle 1-2/3 portion of the posterior horn. There is also heterogeneous increased signal throughout the body of the meniscus with likely extension to the tibial articular surface. Overall findings indicative of tearing of the posterior horn and body. Lateral Meniscus: Intact. LIGAMENTS: Cruciate: Intact. Collateral: Intact. EXTENSOR MECHANISM: Intact. ARTICULAR CARTILAGE/BONE: Patellofemoral Compartment: There is nonuniform up to high-grade cartilage loss in the medial facet with associated subchondral cystic change and cartilage heterogeneity in the median ridge. Additional areas of up to full-thickness cartilage loss throughout the medial trochlea extending into the sulcus with associated subchondral cystic change. Overall moderate patellofemoral arthrosis. Medial Compartment: There are marginal osteophytes. There is nonuniform up to high-grade cartilage loss most prominent in the posterior weightbearing femoral articular surface. There is associated subchondral edema involving both the femoral and tibial sides of the joint. Subchondral cystic change noted in the anterior tibial region. Overall moderate arthrosis. Lateral Compartment: Normal. JOINT FLUID AND BURSAE: There is a prominent joint effusion and intermediate signal synovitis. Increased fluid within the popliteus tendon sheath. Cannot exclude small loose bodies within the tendon sheath versus synovitis. Miscellaneous: Mild generalized edema in the subcutaneous soft tissues and throughout the popliteal fossa. MR/MR knee RT wo con IMPRESSION: 1. Tear of the posterior horn and body of the medial meniscus. 2. Moderate osteoarthritis of the patellofemoral compartment and medial compartment. 3. Joint effusion and synovitis. Cannot exclude small loose bodies within the popliteus tendon sheath versus synovitis.
== END 2023-07-05 17:56 | disposition home or self-care (01) ==
LOC: HO.MRI 17:55
PROVIDERS: Visit Provider Orthopaedic Surgery
DX: M25.461 Effusion, right knee (principal)
CPT/HCPCS: 73721

== ENCOUNTER 2023-07-08 13:40 | Outpatient (AMB) | payer OTHER, SELFPAY ==
--- NOTE | 2023-07-08 13:45 | A.OFFVIS_ITS ---
Intake Vital Signs 07/08/23 13:46 Height 5 ft 11 in Weight 251 lb BMI 35.0 Intake Visit Reasons: OV - Right Knee Synvisc One & MRI Review Intake Note: Cedric is a 72 year old male who presents today today for a Right Knee Synvisc One injection as well as an MRI review Allergies No Known Allergies Allergy (Verified 07/02/23 13:13) HPI OV - Right Knee Synvisc One & MRI Review HPI Details Cedric is a 72 year old man who presents for an MRI review of his right knee, and viscosupplementation. He continues to have pain in the medial aspect of his knee, worse with using stairs. The steroid injection was minimally helpful. FORMERLY [facility] Medical History Atherosclerotic cardiovascular disease Increased BMI Obstructive sleep apnea syndrome in adult Tubular adenoma of colon Hypertension Surgical History History of colonoscopy History of carpal tunnel surgery of right wrist History of left knee replacement Previous back surgery Family History Father Tubular adenoma Brother Tubular adenoma Social History Are you a primary outdoor emergency care technician to a significant other at home: No Do you presently have visiting nurse or other home services: No Alcohol intake: current Alcohol intake frequency: a few times a week Alcohol type: beer Patient Tobacco Use Status: Former Tobacco user Quit Date: 1982 Years Smoked: 15 +/- Advance Directives Date on File: 07/30/09 Review of Systems Const All systems reviewed & are unremarkable except as noted in HPI and below Physical Exam Vital Signs: BMI result Body Mass Index 35.0 Const General: no acute distress, alert and awake Orientation/consciousness: patient oriented x3 HEENT Head: Yes normocephalic and Yes atraumatic Eyes EOM: EOMs intact bilaterally Resp Effort & Inspection: normal respiratory effort and able to speak in complete sentences Cardio Jugular venous distension: no JVD Skin General skin exam: turgor normal Rashes: no rashes Neuro General: patient oriented x3 Extrem Other: Right knee with ttp medial joint line Mildly + Steinmen's Psych Appearance: grossly normal Affect: normal affect Attitude: cooperative Office Procedures Joint Injection/Drain Joint Injection/Drain Details: Injected Synvisc One. Site was prepped using aseptic technique. Patient tolerated the procedure well. Primary Site: right knee Approach Used: anterolateral Coding - Large joint Procedure code (CPT) selection complete Results Reviewed Results Reviewed: I personally reviewed the MR images. 1. Tear of the posterior horn and body of the medial meniscus. 2. Moderate osteoarthritis of the patellofemoral compartment and medial compartment. 3. Joint effusion and synovitis. Cannot exclude small loose bodies within the popliteus tendon sheath versus synovitis. Assessment & Plan Assessment & Plan (1) Arthritis of right knee: Code(s): M17.11 - Unilateral primary osteoarthritis, right knee Plan: This is a 72 yo M with a history of left knee UKA and with right knee medial compartment OA and a degenerative meniscal tear. I injected his with Synvisc One and recommend an unloading brace. I discussed surgical intervention vs non surgical intervention and the degenerative nature of his meniscal tear. At this point we will see how he fares with an unloading brace. (2) Degenerative tear of medial meniscus: Code(s): M23.205 - Derangement of unspecified medial meniscus due to old tear or injury, unspecified knee Plan Scribed for Mao Castro MD by Nolberto Barrera, medical office technician, on 07/08/23 at 1:50 PM, EST. Coding Level of Care Code Est Pt Level 4 (55586) Diagnoses Arthritis of right knee M17.11 Degenerative tear of medial meniscus M23.205 CPT Codes Coding - Large joint: 98353 - Large joint ([id number])
[2023-07-08 13:46] VITALS: BMI 35.0
== END 2023-07-08 14:39 | disposition home or self-care (01) ==
PROVIDERS: Visit Provider Orthopaedic Surgery
DX: M17.11 Unilateral primary osteoarthritis, right knee (principal); M23.200 Derangement of unspecified lateral meniscus due to old tear or injury, right knee
CPT/HCPCS: 20610; 99214

== ENCOUNTER → 2023-07-08 13:40 | Outpatient (BNVA) | payer OTHER, SELFPAY | PROVIDERS: Visit Provider Orthopaedic Surgery | DX: M17.11 Unilateral primary osteoarthritis, right knee (principal); M23.203 Derangement of unspecified medial meniscus due to old tear or injury, right knee | CPT/HCPCS: 20610; J7325 ==

== ENCOUNTER 2023-07-09 10:03 | Outpatient (REF) | payer OTHER, SELFPAY ==
--- NOTE | ~2023-07-09 | CT_ITS ---
EXAMINATION: CT ABDOMEN AND PELVIS WITH CONTRAST CLINICAL INFORMATION: Pain of right lower quadrant. COMPARISON: None available. TECHNIQUE: Multidetector volumetric images were obtained from the superior aspect of the liver through the pubic symphysis following administration 85 mL of Omnipaque 350 intravenous contrast. Sagittal and coronal reformatted images were obtained on the technologist's workstation. Oral contrast: No This CT examination was performed using dose optimization techniques as appropriate, variously including the following: *Automated exposure control *Adjustment of mA and/or kV according to patient size (this includes techniques or standardized protocols for targeted exams where dose is matched to indication/reason for exam; i.e. extremities or head) *Use of iterative reconstruction technique DLP: 794 mGy-cm FINDINGS: No acute abnormality at either lung base. No consolidation or pleural effusion. 0.3 cm solid, noncalcified nodule is present in the lateral right lower lobe (image 88, series 4). 0.5 cm solid, subpleural nodule of the lateral left lower lobe (image 47, series 4). Based on Fleischner Society guidelines, no chest CT imaging follow-up is recommended. Liver has normal size and contour. Several simple-appearing cysts are present in the liver, largest 2.2 cm. Gallbladder has a normal appearance. No evidence of cholelithiasis, gallbladder wall thickening or pericholecystic fluid. No dilated bile ducts. Pancreas is mildly atrophied and otherwise unremarkable. Spleen is normal. Adrenal glands are normal. Kidneys are normal in size. Simple cysts of both kidneys. No renal imaging follow-up is recommended for simple cysts. Nonspecific bilateral perinephric edema is noted. The ureters are unremarkable. No nephrolithiasis or hydronephrosis. Urinary bladder is normal. No dilated bowel loops. No focal bowel wall thickening, mesenteric fat stranding or free fluid. The appendix is normal. Multiple diverticula of the descending and sigmoid colon without evidence of diverticulitis. 5 cm of diastases of rectus abdominis muscles. A small fat-containing umbilical hernia is present. Also, there is symmetric protrusion of non-peritoneal fat into each inguinal canal. Mild atherosclerosis of the abdominal aorta without aneurysm. No pathologic sized lymph nodes in the abdomen or pelvis. Prostate gland is unremarkable. Multiple phleboliths are present in the lower pelvis. No pelvic free fluid. No acute or suspicious osseous abnormality. Multilevel facet arthropathy of the lumbar spine. Moderate degenerative narrowing of disc space, vacuum disc phenomenon and osteophytosis at L4-L5 and L5-S1. There is a lipoma of the posterolateral right abductor stefan in the proximal thigh. CT/CT abdomen pelvis w IV con IMPRESSION: * No acute imaging abnormalities in the abdomen or pelvis. No renal calculi or hydronephrosis. * Diverticula of the descending and sigmoid colon without diverticulitis. No evidence of appendicitis. * Small fat-containing umbilical hernia. Also, there is symmetric protrusion of non-peritoneal fat into each inguinal canal. No acute abnormalities in the abdominal wall.
[2023-07-09] MEDS: iohexoL 350 MG/ML 100 ML INFUS..BTL IV (13:30)
[2023-07-09] MEDS: Barium Sulfate Oral (Vanilla) 450 ML ORAL.SUSP 900 ML PO (13:30)
[2023-07-12 08:22] LABS: Creatinine POC 0.8 mg/dL (0.5-1.4); GFR POC > 60
== END 2023-07-09 10:04 | disposition home or self-care (01) ==
LOC: HO.CT 10:03
PROVIDERS: Visit Provider Internal Medicine
DX: R10.31 Right lower quadrant pain (principal)
CPT/HCPCS: 74177; 82565; Q9967

== ENCOUNTER 2023-09-04 14:10 | Outpatient (REF) | payer OTHER, SELFPAY ==
--- NOTE | ~2023-09-04 | MR_ITS ---
EXAMINATION: MR LUMBAR SPINE WITHOUT CONTRAST CLINICAL INFORMATION: Right-sided radiculopathy. COMPARISON: CT abdomen and pelvis 07/09/2023. TECHNIQUE: MRI of the lumbar spine was obtained using routine sequences without contrast. FINDINGS: Alignment is normal. Vertebral body heights are preserved. There are mixed predominantly type II degenerative endplate changes at L4-L5 and L5-S1. There is loss of intervertebral disc height and T2 signal intensity at multiple levels related to disc degeneration. The tip of the conus medullaris is located at T12-L1. No mass effect on the conus. Visualized distal cord signal intensity is normal. At T12-L1 the annular contour is normal. No canal or neuroforaminal compromise. At L1-L2 there is a slightly bulging disc. No canal stenosis. No mass effect on the traversing or foraminal nerve roots. At L2-L3 there is a slightly bulging disc. Bilateral facet degenerative change. No canal stenosis. No mass effect on the traversing or foraminal nerve roots. At L3-L4 there is a diffusely bulging disc. Advanced bilateral facet degenerative change. Moderate canal stenosis. Subtle abutment of the right traversing L4 nerve roots. Mild mass effect on the right L3 foraminal nerve root. At L4-L5 there is a large central extrusion with 0.8 cm caudal subligamentous extension of extruded disc material causing severe canal stenosis. Bilateral facet degenerative change. Partial effacement of the foraminal fat with mild mass effect on the right L4 foraminal nerve root. At L5-S1 there is a slightly bulging disc. Bilateral facet degenerative change. There is an occult dysraphism of the posterior elements. No canal stenosis. Bilateral facet degenerative change. Mild mass effect on the right L5 foraminal nerve root. Limited visualization of the retroperitoneal anatomy reveals no abnormal finding. Psoas and paraspinal muscle groups are symmetric. MR/MR lumbar spine wo con IMPRESSION: There is a large central extrusion at L4-L5 causing severe canal stenosis. There is also moderate canal stenosis at L3-L4. There are varying degrees of mass effect on the traversing and foraminal segments of the nerve roots as described above. For instance there is mild mass effect on the right L3, L4, and L5 foraminal nerve roots related to degenerative changes at L3-L4, L4-L5, and L5-S1 respectively.
== END 2023-09-04 14:11 | disposition home or self-care (01) ==
LOC: HO.MRI 14:10
PROVIDERS: Visit Provider Internal Medicine
DX: M54.16 Radiculopathy, lumbar region (principal)
CPT/HCPCS: 72148

== ENCOUNTER 2023-09-07 11:17 | Outpatient (REF) | payer OTHER, SELFPAY ==
[2023-09-07 11:35] LABS: MANUAL DIFF FLAG NO
[2023-09-07 13:05] LABS: Basophils Absolute Auto 0.1 X10*3/uL (0.0-0.2); Basophils Percent Auto 0.7 % (0-2); Eosinophils Absolute Auto 0.1 X10*3/uL (0.0-0.4); Eosinophils Percent Auto 0.9 % (0-4); Estimated Average Glucose 103 mg/dL; Hematocrit 47.5 % (42.0-52.0); Hemoglobin A1c % 5.2 % (<6.0); Imm Gran Abs Auto 0.06 X10*3/uL (0.00-0.03); Imm Gran Pct Auto 0.7 % (0.0-0.4); Lymphocytes Percent Auto 24.1 % (20-40); Mean Corpuscular HGB Conc 33.7 g/dl (31.0-36.0); Mean Corpuscular Hemoglobin 30.4 pg (27.0-33.0); Mean Corpuscular Volume 90.1 fL (80.0-98.0); Mean Platelet Volume 11.3 fL (9.4-12.4); Monocytes Absolute Auto 0.9 X10*3/uL (0.1-1.2); Neutrophils Absolute Auto 5.1 x10*3/uL (2.0-8.3); Neutrophils Percent Auto 62.6 % (45-73); Platelet Count 177 X10*3/uL (160-400); Red Blood Count 5.27 X10*6/uL (4.60-5.80); Red Cell Distribution Width 12.7 % (11.0-16.0); White Blood Count 8.2 X10*3/uL (4.8-10.8)
[2023-09-07 13:08] LABS: Appearance Urine Clear; Color Urine Yellow; Glucose Urine UA Negative (Negative); Leukocyte Esterase Urine Negative (Negative); Nitrite Urine Negative (Negative); PH 6.5 (5.0-9.0); Specific Gravity - Urine 1.015 (1.005-1.025); Urine Blood Negative (Negative); Urine Ketones Negative (Negative); Urine Protein Negative (Neg-Trace)
[2023-09-07 13:16] LABS: Alanine Aminotransferase 29 U/L (0-40); Albumin Level 4.4 g/dL (3.5-5.0); Alkaline Phosphatase 99 U/L (39-117); Anion Gap 13 (12-20); Aspartate Amino Transferase 20 U/L (5-37); Bilirubin Total 1.4 mg/dL (0.0-1.0); Blood Urea Nitrogen 18 mg/dL (9-16); Calcium 9.6 mg/dL (8.4-10.2); Carbon Dioxide 29 mmol/L (22-29); Chloride 104 mmol/L (96-108); Estimated Glomerular Filt Rate > 60; Glucose Random 110 mg/dL (60-115); Potassium 3.8 mmol/L (3.3-5.1); Sodium 142 mmol/L (135-145); Total Protein 6.9 g/dL (6.5-8.0)
== END 2023-09-07 11:18 | disposition home or self-care (01) ==
LOC: HO.LAB 11:17
PROVIDERS: PCP Internal Medicine; Visit Provider Internal Medicine
DX: I10 Essential (primary) hypertension (principal); R73.01 Impaired fasting glucose
CPT/HCPCS: 36415; 80053; 81003; 83036; 85025

== ENCOUNTER 2023-09-08 08:05 | Outpatient (AMB) | payer OTHER, SELFPAY ==
--- NOTE | 2023-09-08 08:13 | A.OFFVIS_ITS ---
Intake Vital Signs 09/08/23 08:15 Height 5 ft 11 in Weight 251 lb BMI 35.0 BP 160/96 H Blood Pressure Location Lt brachial Position Sitting Respiration 12 Pulse 86 Pulse Source Pulse Oximeter Pulse Oximetry (%) 97 Oxygen Delivery Method Room Air Intake Visit Reasons: CHRONIC BACK PAIN Allergies No Known Allergies Allergy (Verified 09/08/23 08:17) Medication List - Last Reconciled 09/08/23 by Mindi Weber LPN aspirin (Adult Low Dose Aspirin) 81 mg PO DAILY atorvastatin 20 mg PO BEDTIME hydrochlorothiazide 25 mg PO DAILY naproxen sodium (Aleve) 220 mg PO DAILY PRN valsartan 160 mg PO DAILY vitamins A,C,K-xkpv-zwsvjj 2,148 mcg-113 mg-45 mg-17.4mg 2 tabs PO BID HPI CHRONIC BACK PAIN HPI Details 72-year-old male who presents today to t he office for evaluation of chronic back pain. He reports having back pain in the right lower back radiating down to the right leg for the past few months with no known factor. Pain is described as an aching, burning, numbing sensation that is 9 out of 10 in intensity. It is constant throughout the day, and it appears with his sleep and daily activities, and he is unable to function normally. He has a history notable for microdisectomy at L5-S1 in 2019. He has not tried any form of physical therapy yet. Reports having back issues since he was a child. He wants to try an injection into the back to help relieve the pain. Of note, he is scheduled for a partial knee replacement in 2 weeks from now. [facility] Medical History Atherosclerotic cardiovascular disease Increased BMI Obstructive sleep apnea syndrome in adult Tubular adenoma of colon Hypertension Surgical History History of colonoscopy History of carpal tunnel surgery of right wrist History of left knee replacement Previous back surgery Family History Father Tubular adenoma Brother Tubular adenoma Social History Are you a primary neonatal critical care nurse to a significant other at home: No Do you presently have visiting nurse or other home services: No Alcohol intake: current Alcohol intake frequency: a few times a week Alcohol type: beer Patient Tobacco Use Status: Former Tobacco user Quit Date: 1982 Years Smoked: 15 +/- Advance Directives Date on File: 07/30/09 Review of Systems Const All systems reviewed & are unremarkable except as noted in HPI and below Physical Exam Vital Signs: Last Vital Signs Pulse 86 09/08/23 08:15 Resp 12 09/08/23 08:15 BP 160/96 H 09/08/23 08:15 Pulse Ox 97 09/08/23 08:15 Oxygen Delivery Method Room Air 09/08/23 08:15 BMI result Body Mass Index 35.0 General: Appears afebrile. Alert and oriented. Mood and affect appropriate. Follows and participates in conversation appropriately. Respiratory effort is unlabored. Able to transition from sit to stand unassisted. Results Reviewed Results Reviewed: MR LUMBAR SPINE WITHOUT CONTRAST: 09/04/23 FINDINGS: Alignment is normal. Vertebral body heights are preserved. There are mixed predominantly type II degenerative endplate changes at L4-L5 and L5-S1. There is loss of intervertebral disc height and T2 signal intensity at multiple levels related to disc degeneration. The tip of the conus medullaris is located at T12-L1. No mass effect on the conus. Visualized distal cord signal intensity is normal. At T12-L1 the annular contour is normal. No canal or neuroforaminal compromise. At L1-L2 there is a slightly bulging disc. No canal stenosis. No mass effect on the traversing or foraminal nerve roots. At L2-L3 there is a slightly bulging disc. Bilateral facet degenerative change. No canal stenosis. No mass effect on the traversing or foraminal nerve roots. At L3-L4 there is a diffusely bulging disc. Advanced bilateral facet degenerative change. Moderate canal stenosis. Subtle abutment of the right traversing L4 nerve roots. Mild mass effect on the right L3 foraminal nerve root. At L4-L5 there is a large central extrusion with 0.8 cm caudal subligamentous extension of extruded disc material causing severe canal stenosis. Bilateral facet degenerative change. Partial effacement of the foraminal fat with mild mass effect on the right L4 foraminal nerve root. At L5-S1 there is a slightly bulging disc. Bilateral facet degenerative change. There is an occult dysraphism of the posterior elements. No canal stenosis. Bilateral facet degenerative change. Mild mass effect on the right L5 foraminal nerve root. Limited visualization of the retroperitoneal anatomy reveals no abnormal finding. Psoas and paraspinal muscle groups are symmetric. IMPRESSION: There is a large central extrusion at L4-L5 causing severe canal stenosis. There is also moderate canal stenosis at L3-L4. There are varying degrees of mass effect on the traversing and foraminal segments of the nerve roots as described above. For instance there is mild mass effect on the right L3, L4, and L5 foraminal nerve roots related to degenerative changes at L3-L4, L4-L5, and L5-S1 respectively. Assessment & Plan Assessment & Plan (1) Lumbar radiculopathy: Code(s): M54.16 - Radiculopathy, lumbar region Plan Discussed surgical microdiscectomy versus conservative management with him after his partial knee replacement scheduled in two weeks. Given his upcoming surgery, he is not interested in proceeding with a microdiskectomy at this time. He would like to try an injection to see if we can get some relief to help get through his upcoming surgery as well as the following PT and recovery. We will schedule him for right parasagittal interlaminar RENE between L3 and L4. Discussed the risks and benefits of the procedure with the patient in detail. All questions were answered. The patient is on board with the plan. Justification for interventional therapy: ? Patient with average pain > 6/10 ? Patient unable to tolerate physical therapy due to pain Scribed for Dr. De La Fuente by Basil Ontiveros medical officer psychiatry, on 09/08/2023. I, Dr. De La Fuente, have personally reviewed and agree with the information entered by the scribe. Coding Level of Care Code New Pt Level 4 (96272) Diagnoses Lumbar radiculopathy M54.16
[2023-09-08 08:15] VITALS: BP 160/96; PULSE 86; RESP 12; O2SAT 97; BMI 35.0
== END 2023-09-08 08:52 | disposition home or self-care (01) ==
LOC: HO.PMC 08:07
PROVIDERS: PCP Internal Medicine; Visit Provider Internal Medicine
DX: M54.16 Radiculopathy, lumbar region (principal)
CPT/HCPCS: 99204

== ENCOUNTER → 2023-09-08 08:05 | Outpatient (BNVA) | payer OTHER, SELFPAY | PROVIDERS: PCP Internal Medicine; Visit Provider Internal Medicine ==

== ENCOUNTER 2023-09-09 06:10 | Outpatient (REF) | payer OTHER, SELFPAY ==
--- NOTE | ~2023-09-09 | FL_ITS ---
EXAMINATION: XR FLUOROSCOPY WITH IMAGES CLINICAL INFORMATION: Right L3-L4 parasagittal interlaminar RENE. COMPARISON: Portions of the MRI lumbar spine dated 09/04/2023. TECHNIQUE: Fluoroscopy Supervised By: Dr. Kale De La Fuente. Fluoroscopy Time: 0.1 minutes. Cumulative Dose: 2.71 mGy. DAP: 0.0194 mGym2. Images: 2. FINDINGS: The submitted images show an injection needle and injected epidural contrast in the lumbar region. FL/FL guidance in treatment room IMPRESSION: Intraoperative fluoroscopic guidance is provided during right L3-L4 parasagittal interlaminar RENE. Please see the patient's Operative Report for full procedural details.
== END 2023-09-09 06:11 | disposition home or self-care (01) ==
LOC: CF 06:10
PROVIDERS: Visit Provider Internal Medicine
DX: M54.16 Radiculopathy, lumbar region (principal)
CPT/HCPCS: 62323; J2795; J3301; Q9967

== ENCOUNTER 2023-09-09 10:42 | Outpatient (AMB) | payer OTHER, SELFPAY ==
[2023-09-09 10:47] VITALS: BP 142/82; PULSE 93; RESP 18; O2SAT 100; BMI 35.0
--- NOTE | 2023-09-09 10:47 | MHC.OFFVIS ---
Intake Vital Signs 09/09/23 10:47 09/09/23 11:24 Height 5 ft 11 in Weight 251 lb BMI 35.0 BP 142/82 H 132/80 Blood Pressure Location Lt brachial Lt brachial Position Sitting Sitting Respiration 18 18 Pulse 93 88 Pulse Source Pulse Oximeter Pulse Oximeter Pulse Oximetry (%) 100 99 Oxygen Delivery Method Room Air Room Air Comment Pe-Op Post-Op Intake Visit Reasons: right L3-L4 parasagittal interlaminar RENE Allergies No Known Allergies Allergy (Verified 09/08/23 08:17) HPI right L3-L4 parasagittal interlaminar RENE HPI Details Patient presents for scheduled procedure. Denies any recent cough, cold, infection, fever or other significant changes in medical history since last office visit. [facility] Medical History Atherosclerotic cardiovascular disease Increased BMI Obstructive sleep apnea syndrome in adult Tubular adenoma of colon Hypertension Surgical History History of colonoscopy History of carpal tunnel surgery of right wrist History of left knee replacement Previous back surgery Family History Father Tubular adenoma Brother Tubular adenoma Social History Are you a primary palliative care coordinator to a significant other at home: No Do you presently have visiting nurse or other home services: No Alcohol intake: current Alcohol intake frequency: a few times a week Alcohol type: beer Patient Tobacco Use Status: Former Tobacco user Quit Date: 1982 Years Smoked: 15 +/- Advance Directives Date on File: 07/30/09 Physical Exam Vital Signs: Last Vital Signs Pulse 88 09/09/23 11:24 Resp 18 09/09/23 11:24 BP 132/80 09/09/23 11:24 Pulse Ox 99 09/09/23 11:24 Oxygen Delivery Method Room Air 09/09/23 11:24 BMI result Body Mass Index 35.0 Office Procedures Joint Injection/Drain Joint Injection/Drain Details: Interlaminar epidural steroid injection, L3-4, right parasaggital After obtaining written consent, pre-procedure blood pressure and heart rate were stable and recorded in the nursing record. The patient was placed in the prone position. The lumbosacral area was widely prepped with chloraprep and draped in sterile fashion. Fluoroscopic guidance was used to identify the desired interlaminar space and for needle placement. Subcutaneous 0.5% lidocaine was used to anesthetize the skin overlying the target. A 20-gauge Villegas needle was advanced to the epidural space using loss of resistance to contrast technique under fluoroscopic AP and contralateral oblique views. There was no evidence of heme or CSF and no paresthesias were elicited with needle placement. Confirmation of epidural needle placement was performed with 1cc of omnipaque 180. Next 3 ml 0.5% lidocaine mixed with 40 mg triamcinolone was administered epidurally with no pain elicited on injection. The needle tract tubing was then cleared with 1 ml of 0.5% lidocaine. The needle was removed, skin cleansed and a sterile bandage was applied. The patient tolerated the procedure well and no complications were encountered. Following the procedure the patient's vital signs were stable. The patient was discharged home in good condition with post-procedural instructions. Time Out: Immediately prior to the procedure, the following was verbally confirmed that there is a signed consent form and that the correct patient, planned procedure, site and side are consistent with documentation and that necessary equipment and/or blood products are available prior to the start of the case. Complications: none EBL: <5 cc Coding 75571 - Caudal/Lumbar Epidural/Interlaminar with fluoroscopy Procedure code (CPT) selection complete Assessment & Plan Assessment & Plan (1) Lumbar radiculopathy: Code(s): M54.16 - Radiculopathy, lumbar region Plan Patient is status post right parasagittal interlaminar L3-4 RENE. Patient tolerated procedure well and was discharged home in stable condition with discharge instructions. All questions were answered. We will follow-up via telephone or in clinic to assess response to therapy. A follow-up appointment was made during today's visit. Coding Level of Care Code Procedure Only Diagnoses Lumbar radiculopathy M54.16 CPT Codes Coding - Joint 11: 99761 - Caudal/Lumbar Epidural/Interlaminar with fluoroscopy ([id number])
[2023-09-09 11:24] VITALS: BP 132/80; PULSE 88; RESP 18; O2SAT 99
== END 2023-09-09 11:25 | disposition home or self-care (01) ==
LOC: HO.PMCPRC 10:42
PROVIDERS: PCP Internal Medicine; Visit Provider Internal Medicine
DX: M54.16 Radiculopathy, lumbar region (principal)
CPT/HCPCS: 62323

== ENCOUNTER 2023-10-04 08:23 | Outpatient (AMB) | payer OTHER, SELFPAY ==
--- NOTE | 2023-10-04 08:27 | A.OFFVIS_ITS ---
Intake Vital Signs 10/04/23 08:28 Height 5 ft 11 in Weight 245 lb BMI 34.2 BP 157/80 H Blood Pressure Location Lt brachial Position Sitting Respiration 12 Pulse 80 Pulse Source Pulse Oximeter Pulse Oximetry (%) 98 Oxygen Delivery Method Room Air Intake Visit Reasons: s/p RENE Allergies No Known Allergies Allergy (Verified 10/04/23 08:30) Medication List - Last Reconciled 10/04/23 by Mindi Weber LPN aspirin (Adult Low Dose Aspirin) 81 mg PO DAILY atorvastatin 20 mg PO BEDTIME hydrochlorothiazide 25 mg PO DAILY meloxicam 15 mg PO DAILY methocarbamol 750 mg PO Q8H PRN valsartan 160 mg PO DAILY vitamins A,C,C-ubwp-zlikkc 2,148 mcg-113 mg-45 mg-17.4mg 2 tabs PO BID HPI s/p RENE HPI Details 72-year-old male who presents today to t he office for a status post RENE. The patient reports >90% relief following the procedure. He is able to walk without any back pain at this point. He underwent his partial knee replacement surgery 2 weeks ago. He is very pleased with the back pain not affecting his recovery from the knee surgery. Past procedures 09/09/23: Interlaminar epidural steroid injection, L3-4, right parasaggital: >90% relief. [facility] Medical History Atherosclerotic cardiovascular disease Increased BMI Obstructive sleep apnea syndrome in adult Tubular adenoma of colon Hypertension Surgical History History of colonoscopy History of carpal tunnel surgery of right wrist History of left knee replacement Previous back surgery Family History Father Tubular adenoma Brother Tubular adenoma Social History Are you a primary cardiac care nurse to a significant other at home: No Do you presently have visiting nurse or other home services: No Alcohol intake: current Alcohol intake frequency: a few times a week Alcohol type: beer Patient Tobacco Use Status: Former Tobacco user Quit Date: 1982 Years Smoked: 15 +/- Advance Directives Date on File: 07/30/09 Review of Systems Const All systems reviewed & are unremarkable except as noted in HPI and below Physical Exam Vital Signs: Last Vital Signs Pulse 80 10/04/23 08:28 Resp 12 10/04/23 08:28 BP 157/80 H 10/04/23 08:28 Pulse Ox 98 10/04/23 08:28 Oxygen Delivery Method Room Air 10/04/23 08:28 BMI result Body Mass Index 34.2 General: Appears afebrile. Alert and oriented. Mood and affect appropriate. Follows and participates in conversation appropriately. Respiratory effort is unlabored. Able to transition from sit to stand unassisted. Ambulates with bilaterally normal heel strike and toe off. Results Reviewed Results Reviewed: No imaging is available for review. Assessment & Plan Assessment & Plan (1) Lumbar radiculopathy: Code(s): M54.16 - Radiculopathy, lumbar region Plan Advised patient to continue with core strengthening exercises to prolong the effect of the epidural steroid injection. Follow-up as needed when the pain returns. We may repeat epidural steroid injection for lumbar radiculopathy secondary to disc herniation. Scribed for Dr. De La Fuente by Adam Meyer, medical technologist chemistry, on 10/04/2023. I, Dr. De La Fuente, have personally reviewed and agree with the information entered by the scribe. Coding Level of Care Code Est Pt Level 3 (78957) Diagnoses Lumbar radiculopathy M54.16
[2023-10-04 08:28] VITALS: BP 157/80; PULSE 80; RESP 12; O2SAT 98; BMI 34.2
== END 2023-10-04 08:43 | disposition home or self-care (01) ==
PROVIDERS: PCP Internal Medicine; Visit Provider Internal Medicine
DX: M54.16 Radiculopathy, lumbar region (principal)
CPT/HCPCS: 99213

== ENCOUNTER → 2023-10-04 08:23 | Outpatient (BNVA) | payer OTHER, SELFPAY | PROVIDERS: PCP Internal Medicine; Visit Provider Internal Medicine ==

== ENCOUNTER 2023-11-10 10:00 | Outpatient (RCR) | payer OTHER, SELFPAY | END 2023-11-10 12:37 | disposition home or self-care (01) | LOC: HO.PTWFD 10:00 | PROVIDERS: PCP Internal Medicine; Visit Provider Orthopaedic Surgery | DX: Z96.651 Presence of right artificial knee joint (principal) | CPT/HCPCS: 97110; 97161; 97530; 97535 ==

== ENCOUNTER 2023-12-06 12:56 | Outpatient (AMB) | payer OTHER, SELFPAY ==
[2023-12-06 12:58] VITALS: BP 122/68; PULSE 86; BMI 34.1
--- NOTE | 2023-12-06 12:58 | MHC.OFFVIS ---
Vital Signs 12/06/23 12:58 Height 5 ft 11 in Weight 244 lb 11.41 oz BMI 34.1 BP 122/68 Blood Pressure Location Lt brachial Position Sitting Pulse 86 Pulse Source Monitor Intake Visit Reasons: 1 yr f/u after sleep study Allergies No Known Allergies Allergy (Verified 10/04/23 08:30) Medication List - Last Reconciled 12/06/23 by Pato Rodriguez MD atorvastatin 20 mg PO BEDTIME hydrochlorothiazide 25 mg PO DAILY valsartan 160 mg PO DAILY vitamins A,C,J-igxx-ecfsrw 2,148 mcg-113 mg-45 mg-17.4mg 2 tabs PO BID HPI Comments Details: Cedric returns for follow-up. In the past, was seen in consultation regarding coronary disease. He had a calcium scoring CT scan in 2021, that was mildly abnormal. Various risk factors including obesity, hypertension, dyslipidemia, obstructive sleep apnea and uses a mandibular device and not CPAP. Otherwise, he is fairly active with no limitations. Very brief, sharp chest pains that last only seconds and nonexertional. Do not sound like angina. [facility] Medical History Atherosclerotic cardiovascular disease Increased BMI Obstructive sleep apnea syndrome in adult Tubular adenoma of colon Hypertension Surgical History History of colonoscopy History of carpal tunnel surgery of right wrist History of left knee replacement Previous back surgery Family History Father Tubular adenoma Brother Tubular adenoma Social History Are you a primary healthcare consulting manager to a significant other at home: No Do you presently have visiting nurse or other home services: No Alcohol intake: current Alcohol intake frequency: a few times a week Alcohol type: beer Patient Tobacco Use Status: Former Tobacco user Years Smoked: 15 +/- Advance Directives Date on File: 07/30/09 Review of Systems Const Denies weakness ENT Denies dizziness Card Denies chest pain, Denies chest pain with activity, Denies syncope, Denies rapid heart rate, Denies pedal edema, Denies edema, Denies leg edema, Denies lightheadedness, Denies palpitations, Denies dyspnea, Denies dyspnea on exertion and Denies orthopnea Resp Denies cough, Denies dyspnea and Denies dyspnea on exertion GI Denies hematochezia and Denies change in stool character Musc Denies abnormal gait, Denies muscle cramps, Denies muscle weakness, Denies numbness, Denies radiating pain into limb and Denies tingling Neuro Denies abnormal gait, Denies dizziness, Denies syncope, Denies numbness, Denies tingling and Denies weakness Endo Denies palpitations Physical Exam Vital Signs: Last Vital Signs Pulse 86 12/06/23 12:58 BP 122/68 12/06/23 12:58 BMI result Body Mass Index 34.1 Const General: comfortable and no acute distress Orientation/consciousness: patient oriented x3 HEENT Other: Unremarkable Head: Yes normal to inspection Neck Neck: Yes normal visual inspection Chest Chest palpation & inspection: normal inspection of the chest Resp Auscultation: clear to auscultation bilaterally Cardio Palpation: normal PMI Heart sounds: S1 normal heart sound present, S2 normal heart sound present, no gallops, no murmurs and no rubs GI Palpation (GI): Soft to palpation Back/Spine/Pelvis Other: unremarkable Skin General skin exam: no rashes or lesions noted Neuro General: patient oriented x3 Extrem General: Yes normal to inspection Psych Mental Status: mental status grossly normal Office Procedures EKG Details: EKG with sinus rhythm at 86/Min; [place] prolongation to 240 milliseconds; normal corrected QT; no significant ST-T changes. [id number], Complete Assessment & Plan Assessment & Plan (1) Atherosclerotic cardiovascular disease: Code(s): I25.10 - Atherosclerotic heart disease of [place] coronary artery without angina pectoris Category: Medical (2) Essential hypertension: Code(s): I10 - Essential (primary) hypertension Category: Medical (3) Other and unspecified hyperlipidemia: Code(s): E78.5 - Hyperlipidemia, unspecified Category: Medical (4) Obstructive sleep apnea syndrome in adult: Code(s): G47.33 - Obstructive sleep apnea (adult) (pediatric) Category: Medical (5) First degree heart block: Code(s): I44.0 - Atrioventricular block, first degree Category: Medical (6) Morbid obesity: Code(s): E66.01 - Morbid (severe) obesity due to excess calories Category: Medical Plan Calcium scoring CT scan 2021 reviewed. Left main -46. LAD -67. Circumflex-0. Right coronary artery -0. Total score 113. Last echocardiogram is from 2017 that shows LVEF of 55-60% with mild diastolic dysfunction but no valvular issues. Risk factors for coronary disease include age, weight, hypertension, hyperlipidemia, obstructive sleep apnea. Overall, mainly risk factor modification. Weight loss. Blood pressure seems stable on the current regimen. He is on valsartan, hydrochlorothiazide. For dyslipidemia, on statins. His LDL was well controlled into the 70s but most recently higher. Could be dietary. He can recheck in a few months and if still high possibly higher dose statins. For COLUMBA, suspect he is on a mandibular advancement type device. Most recent sleep study shows mild COLUMBA only. With regard to the first-degree heart block, no specific implications. Will need to follow EKGs yearly. Discussed. Coding Level of Care Code Est Pt Level 4 (54470) Diagnoses Atherosclerotic cardiovascular disease I25.10 Essential hypertension I10 Other and unspecified hyperlipidemia E78.5 Obstructive sleep apnea syndrome in adult G47.33 First degree heart block I44.0 Morbid obesity E66.01 CPT Codes EKG - CPT: 26591-[id number], Complete ([id number])
== END 2023-12-06 13:24 | disposition home or self-care (01) ==
PROVIDERS: PCP Internal Medicine; Visit Provider Internal Medicine
DX: I25.10 Atherosclerotic heart disease of native coronary artery without angina pectoris (principal); I10 Essential (primary) hypertension; E78.5 Hyperlipidemia, unspecified; G47.33 Obstructive sleep apnea (adult) (pediatric); I44.0 Atrioventricular block, first degree; E66.01 Morbid (severe) obesity due to excess calories
CPT/HCPCS: 93010; 99214

== ENCOUNTER → 2023-12-06 12:56 | Outpatient (BNVA) | payer OTHER, SELFPAY | PROVIDERS: PCP Internal Medicine; Visit Provider Internal Medicine | DX: I25.10 Atherosclerotic heart disease of native coronary artery without angina pectoris (principal); I10 Essential (primary) hypertension; I44.0 Atrioventricular block, first degree; E78.5 Hyperlipidemia, unspecified; G47.33 Obstructive sleep apnea (adult) (pediatric); E66.01 Morbid (severe) obesity due to excess calories | CPT/HCPCS: 93005 ==

== ENCOUNTER 2024-01-13 13:05 | Outpatient (REF) | payer OTHER, SELFPAY ==
[2024-01-13 14:36] LABS: Blood Urea Nitrogen 12 mg/dL (9-16); Estimated Glomerular Filt Rate > 60; Uric Acid 6.9 mg/dL (3.4-7.0)
== END 2024-01-13 13:06 | disposition home or self-care (01) ==
LOC: HO.WFDLDS 13:05
PROVIDERS: Visit Provider Internal Medicine
DX: M79.674 Pain in right toe(s) (principal); R10.31 Right lower quadrant pain
CPT/HCPCS: 36415; 82565; 84520; 84550

== ENCOUNTER 2024-07-06 11:31 | Outpatient (REF) | payer OTHER, SELFPAY ==
--- OUTSIDE RECORDS SUMMARY | 2024-07-06 12:15 | XMS_ITS ---
Author Name [facility] Organization Unknown History of Medication Use Medication Directions Dispensed Refills Start Date End Date Stat us amoxicillin (AMOXIL) 500 MG tablet TAKE 4 TABLETS 1 HOUR PRIOR TO DENTAL APPOINTMENT AND 2 TABLETS 6 HOURS AFTER DENTAL APPOINTMENT 01/08/2024 active methocarbamol (ROBAXIN) 750 MG tablet Take 1 tablet (750 mg total) by mouth 4 (four) times a day as needed for muscle spasms. 09/22/2023 active meloxicam (MOBIC) 15 MG tablet Take 1 tablet (15 mg total) by mouth daily as needed (pain). Take with food in the morning 09/22/2023 active oxyCODONE (ROXICODONE) 5 MG immediate release tablet Take 1 tablet (5 mg total) by mouth Every 4 (four) to 6 (six) hours as needed for severe pain. This is a 1 week supply Max Daily Amount: 30 mg 09/22/2023 active cephalexin (KEFLEX) 500 MG capsule Take 1 capsule (500 mg total) by mouth 3 times daily (every 8 hours). 09/22/2023 active No known medications No known medications 08/07/2023 active Problems Problem Status Onset Date Problem Type Date of Resolution Source Status post unicompartmental knee replacement active EncounterDiagnosisAct CCT
[2024-07-06 14:10] LABS: MANUAL DIFF FLAG NO
[2024-07-06 14:15] LABS: Basophils Absolute Auto 0.1 X10*3/uL (0.0-0.2); Basophils Percent Auto 0.7 % (0-2); Eosinophils Absolute Auto 0.1 X10*3/uL (0.0-0.4); Eosinophils Percent Auto 0.8 % (0-4); Hematocrit 50.2 % (42.0-52.0); Hemoglobin 16.7 g/dl (14.0-18.0); Imm Gran Abs Auto 0.09 X10*3/uL (0.00-0.03); Imm Gran Pct Auto 1.2 % (0.0-0.4); Lymphocytes Absolute Auto 1.7 X10*3/uL (1.2-4.9); Lymphocytes Percent Auto 23.4 % (20-40); Mean Corpuscular HGB Conc 33.3 g/dl (31.0-36.0); Mean Corpuscular Hemoglobin 30.8 pg (27.0-33.0); Mean Corpuscular Volume 92.4 fL (80.0-98.0); Mean Platelet Volume 11.4 fL (9.4-12.4); Monocytes Absolute Auto 0.9 X10*3/uL (0.1-1.2); Monocytes Percent Auto 12.5 % (2-11); Neutrophils Absolute Auto 4.5 x10*3/uL (2.0-8.3); Neutrophils Percent Auto 61.4 % (45-73); Platelet Count 158 X10*3/uL (160-400); Red Blood Count 5.43 X10*6/uL (4.60-5.80); Red Cell Distribution Width 12.7 % (11.0-16.0); White Blood Count 7.3 X10*3/uL (4.8-10.8)
[2024-07-06 14:24] LABS: Appearance Urine Clear; Color Urine Yellow; Glucose Urine UA Negative (Negative); Leukocyte Esterase Urine Negative (Negative); Nitrite Urine Negative (Negative); PH 5.5 (5.0-9.0); Urine Blood Negative (Negative); Urine Ketones Negative (Negative); Urine Protein Negative (Neg-Trace)
[2024-07-06 14:24] LABS: Estimated Average Glucose 111 mg/dL; Hemoglobin A1C 150.5975 umol/L; Hemoglobin A1c % 5.5 % (<6.0)
[2024-07-06 14:41] LABS: Alanine Aminotransferase 43 U/L (0-40); Albumin Level 4.3 g/dL (3.5-5.0); Alkaline Phosphatase 95 U/L (39-117); Anion Gap 10 (12-20); Aspartate Amino Transferase 28 U/L (5-37); Blood Urea Nitrogen 16 mg/dL (9-16); Calcium 9.3 mg/dL (8.4-10.2); Carbon Dioxide 30 mmol/L (22-29); Chloride 105 mmol/L (96-108); Cholesterol 134 mg/dL (<200); Estimated Glomerular Filt Rate > 60; Glucose Random 115 mg/dL (60-115); HDL Cholesterol 37 mg/dL (>40); LDL Cholesterol Calculated 76 mg/dL (<100); Potassium 3.9 mmol/L (3.3-5.1); Sodium 141 mmol/L (135-145); Total Protein 6.8 g/dL (6.5-8.0); Triglycerides 107 mg/dL (<150)
[2024-07-06 14:48] LABS: Prostate Specific Antigen Scr 0.62 ng/mL (<0.05-4.0)
[2024-07-06 14:57] LABS: Thyroid Stimulating Hormone 1.67 uIU/mL (0.32-4.0)
== END 2024-07-06 11:32 | disposition home or self-care (01) ==
LOC: HO.WFDLDS 11:31
PROVIDERS: Visit Provider Internal Medicine
DX: I10 Essential (primary) hypertension (principal); Z12.5 Encounter for screening for malignant neoplasm of prostate; R73.01 Impaired fasting glucose; E78.00 Pure hypercholesterolemia, unspecified
CPT/HCPCS: 36415; 80053; 80061; 81003; 83036; 84153; 84443; 85025

== ENCOUNTER 2024-08-04 11:29 | Outpatient (REF) | payer OTHER, SELFPAY ==
--- NOTE | ~2024-08-04 | XR_ITS ---
EXAMINATION: XR ELBOW, RIGHT CLINICAL INFORMATION: M25.521 - Pain in right elbow COMPARISON: None available. TECHNIQUE: AP, lateral, and oblique views of the right elbow. FINDINGS: No acute cortical disruption or malalignment. No lytic or blastic lesions. Punctate calcification at the distal triceps tendon region. No gross joint effusion. No subcutaneous emphysema. XR/XR elbow RT min 3V IMPRESSION: No acute fracture or dislocation. Nonspecific punctate calcification triceps tendon region. Prior trauma versus tendinosis/tendinopathy among other etiologies. Electronically signed by: Wicho Goff MD 08/04/2024 12:22 PM MARIANNE
--- OUTSIDE RECORDS SUMMARY | 2024-08-04 12:58 | XMS_ITS | Clinical Summary ---
Author Organization [facility] Address [address] [place] [address] Care Team Providers Care Roll Examiner Name Role Phone Jose M Mackey MD Primary Care Provider [phone] Allergies No known active allergies Medications Medication Sig Dispensed Refills Start Date End Date Status meloxicam (MOBIC) 15 MG tabletIndications:Stat us post right knee replacement Take 1 tablet (15 mg total) by mouth daily as needed (pain). Take with food in the morning 30 tablet 09/20/2023 Active oxyCODONE (ROXICODONE) 5 MG immediate release tabletIndications:Stat us post right knee replacement Take 1 tablet (5 mg total) by mouth Every 4 (four) to 6 (six) hours as needed for severe pain. This is a 1 week supply Max Daily Amount: 30 mg 42 tablet 09/20/2023 Active methocarbamol (ROBAXIN) 750 MG tabletIndications:Stat us post right knee replacement Take 1 tablet (750 mg total) by mouth 4 (four) times a day as needed for muscle spasms. 60 tablet 09/20/2023 Active amoxicillin (AMOXIL) 500 MG tabletIndications:Stat us post right knee replacement TAKE 4 TABLETS 1 HOUR PRIOR TO DENTAL APPOINTMENT AND 2 TABLETS 6 HOURS AFTER DENTAL APPOINTMENT 6 tablet 2 01/06/2024 5 Active amoxicillin (AMOXIL) 500 MG tabletIndications:Stat us post unicompartmental knee replacement TAKE 4 TABLETS 1 HOUR PRIOR TO DENTAL APPOINTMENT AND 2 TABLETS 6 HOURS AFTER DENTAL APPOINTMENT 6 tablet 2 02/03/2024 5 Active amoxicillin (AMOXIL) 500 MG tabletIndications:Stat us post unicompartmental knee replacement TAKE 4 TABLETS 1 HOUR PRIOR TO DENTAL APPOINTMENT AND 2 TABLETS 6 HOURS AFTER DENTAL APPOINTMENT 6 tablet 2 05/05/2024 5 Active Active Problems No known active problems Encounters Date Type Department Care Team Description 05/05/2024 Refill [facility] [address] [place] [address] Jarrett Jim MD Status post unicompartmental knee replacement (Primary Dx) from Last 3 Months Social History Tobacco Use Types Packs/Day Years Used Date Smoking Tobacco: Never Assessed Sex and Gender Information Value Date Recorded Sex Assigned at Male 07/19/2023 11:40 AM EST Gender Identity Male 09/16/2023 3:26 PM EDT Sexual Orientation Heterosexual (straight) 09/15 3:26 PM EDT Plan of Treatment Health Maintenance Due Date Last Done Comments Hepatitis C Virus Screening 1950 DTaP/Tdap/Td Vaccines (1 - Tdap) 12/08/1970 Colonoscopy 12/08/1996 Pneumococcal Vaccines 50+ (1 of 1 - PCV) 12/08/2001 Zoster (Shingles) Vaccine (1 of 2) 12/08/2001 Influenza Vaccine 01/27/2024 04/21/2023, , 04/29/2021, Additional history exists COVID-19 Vaccine ( - 2023- season) 2024 07/07/2020, 06/14/2020 RSV Vaccine 60 years and older and Patients (1 - 1-dose 75+ series) 12/08/2026 Hepatitis B Vaccines Aged Out No long er eligible based on patient's age to complete this topic Care Teams Roll Examiner Relationship Specialty Start Date End Date Jose M Mackey MD [address] [place] [address] PCP - General Internal Medicine 08/05/23
--- OUTSIDE RECORDS SUMMARY | 2024-08-04 12:58 | XMS_ITS | Encounter Summary ---
Author Organization [facility] Address [address] [place] [address] Care Team Providers Care Taper And Floater Name Role Phone Jose M Mackey MD Primary Care Provider [phone] Encounter Details Date Type Department Care Team (Late st Contact Info) Description 10/06/2023 Scanned Document [facility] [address] [phone] Jarrett Jim MD [address] [id number] Social History Tobacco Use Types Packs/Day Years Used Date Smoking Tobacco: Never Assessed Sex and Gender Information Value Date Recorded Sex Assigned at Male 07/19/2023 11:40 AM EST Gender Identity Male 09/16/2023 3:26 PM EDT Sexual Orientation Heterosexual (straight) 09/15 3:26 PM EDT documented as of this encounter Plan of Treatment Not on file documented as of this encounter Visit Diagnoses Not on filedocumented in this encounter Care Teams Taper And Floater Relationship Specialty Start Date End Date Jose M Mackey MD [address] [place] [address] PCP - General Internal Medicine 08/05/23 documented as of this encounter
--- OUTSIDE RECORDS SUMMARY | 2024-08-04 12:59 | XMS_ITS | Encounter Summary ---
Author Organization [facility] Address [address] [place] [address] Care Team Providers Care Sort Line Worker Name Role Phone Jose M Mackey MD Primary Care Provider [phone] Encounter Details Date Type Department Care Team ([facility] st Contact Info) Description 09/24/2023 Scanned Document [facility] [address] [phone] Jarrett Jim MD [address] [place] [address] Social History Tobacco Use Types Packs/Day Years [...] on filedocumented in this encounter Care Teams Sort Line Worker Relationship Specialty Start Date End Date Jose M Mackey MD [address] [place] [address] PCP - General Internal Medicine 08/05/23 documented as of this encounter
--- OUTSIDE RECORDS SUMMARY | 2024-08-04 12:59 | XMS_ITS | Encounter Summary ---
Author Organization [facility] Address [address] [place] [address] Care Team Providers Care Equine Vet Name Role Phone Jose M Mackey MD Primary Care Provider [phone] Encounter Details Date Type Department Care Team ([facility] st Contact Info) Description 09/21/2023 Scanned Document [facility] [address] [phone] Jarrett Jim MD [address] [place] [address] Social History Tobacco Use Types Packs/Day Years [...] on filedocumented in this encounter Care Teams Equine Vet Relationship Specialty Start Date End Date Jose M Mackey MD [address] [place] [address] PCP - General Internal Medicine 08/05/23 documented as of this encounter
--- OUTSIDE RECORDS SUMMARY | 2024-08-04 12:59 | XMS_ITS | Encounter Summary ---
Author Organization [facility] Address [address] [place] [address] Care Team Providers Care Auto Electrician Name Role Phone Jose M Mackey MD Primary Care Provider [phone] Encounter Details Date Type Department Care Team ([facility] st Contact Info) Description 10/19/2023 Scanned Document [facility] [address] [phone] Jarrett Jim MD [address] [place] [address] Social History Tobacco Use Types Packs/Day Years [...] on filedocumented in this encounter Care Teams Auto Electrician Relationship Specialty Start Date End Date Jose M Mackey MD [address] [place] [address] PCP - General Internal Medicine 08/05/23 documented as of this encounter
== END 2024-08-04 11:30 | disposition home or self-care (01) ==
LOC: HO.HMGCX 11:29
PROVIDERS: PCP Internal Medicine; Visit Provider Physician Assistant
DX: M25.521 Pain in right elbow (principal)
CPT/HCPCS: 73080

== ENCOUNTER → 2024-08-04 11:29 | Outpatient (AMB) | END | disposition home or self-care (01) ==

== ENCOUNTER → 2024-08-04 12:01 | Outpatient (BNV) | payer OTHER, SELFPAY | PROVIDERS: PCP Internal Medicine; Visit Provider Radiology Diagnostic Radiology | DX: M25.521 Pain in right elbow (principal) | CPT/HCPCS: 73080 ==

== ENCOUNTER 2024-12-07 09:57 | Outpatient (AMB) | payer OTHER, SELFPAY ==
[2024-12-07 10:02] VITALS: BP 120/80; PULSE 67; BMI 34.4
--- NOTE | 2024-12-07 10:02 | MHC.OFFVIS ---
Vital Signs 12/07/24 10:02 Height 5 ft 11 in Weight 246 lb 14.684 oz BMI 34.4 BP 120/80 Blood Pressure Location Lt brachial Position Sitting Pulse 67 Pulse Source Monitor Intake Visit Reasons: 1 yr f/up Glued Wood Tester Required: No Accompanied by: Self / Same As Patient Allergies No Known Allergies Allergy (Verified 08/04/24 11:46) Medication List - Last Reconciled 12/07/24 by Pato Rodriguez MD atorvastatin 20 mg PO BEDTIME hydrochlorothiazide 25 mg PO DAILY valsartan 240 mg PO DAILY HPI Comments Details: Cedric returns for follow-up. In the past, was seen in consultation regarding coronary disease. He had a calcium scoring CT scan in 2021, that was mildly abnormal. Various risk factors including obesity, hypertension, dyslipidemia, obstructive sleep apnea and uses a mandibular device and not CPAP. Since last seen, he states he feels good. No complaints like angina or shortness of breath or in fact anything cardiac sounding. He is getting along fine. Continues to work. He states that his blood pressure is running high and hence his PCP had increased Valsartan. [facility] Medical History Atherosclerotic cardiovascular disease Increased BMI Obstructive sleep apnea syndrome in adult Tubular adenoma of colon Hypertension Surgical History History of colonoscopy History of carpal tunnel surgery of right wrist History of left knee replacement Previous back surgery Family History Father Tubular adenoma Brother Tubular adenoma Social History Are you a primary career and transition teacher to a significant other at home: No Do you presently have visiting nurse or other home services: No Alcohol intake: current Alcohol intake frequency: a few times a week Alcohol type: beer Patient Tobacco Use Status: Former Tobacco user Years Smoked: 15 +/- Advance Directives Date on File: 07/30/09 Review of Systems Const Denies chills, Denies fatigue, Denies fever(s), Denies frequent falls, Denies weakness, Denies weight gain and Denies weight loss ENT Denies dizziness Card Denies chest pain, Denies leg edema, Denies lightheadedness, Denies palpitations, Denies dyspnea and Denies dyspnea on exertion Resp Denies cough, Denies dyspnea and Denies dyspnea on exertion GI Denies hematochezia Musc Denies abnormal gait, Denies muscle weakness, Denies numbness, Denies radiating pain into limb and Denies tingling Neuro Denies abnormal gait, Denies dizziness, Denies frequent falls, Denies numbness, Denies tingling and Denies weakness Endo Denies fatigue and Denies palpitations Physical Exam Vital Signs: Last Vital Signs Pulse 67 12/07/24 10:02 BP 120/80 12/07/24 10:02 BMI result Body Mass Index 34.4 Const General: comfortable and no acute distress Orientation/consciousness: patient oriented x3 HEENT Other: Unremarkable Head: Yes normal to inspection Neck Neck: Yes normal visual inspection Chest Chest palpation & inspection: normal inspection of the chest Resp Auscultation: clear to auscultation bilaterally Cardio Palpation: normal PMI Heart sounds: S1 normal heart sound present, S2 normal heart sound present, no gallops, no murmurs and no rubs GI Palpation (GI): Soft to palpation Back/Spine/Pelvis Other: unremarkable Skin General skin exam: no rashes or lesions noted Neuro General: patient oriented x3 Extrem General: Yes normal to inspection Psych Mental Status: mental status grossly normal Office Procedures EKG Details: EKG with underlying sinus rhythm at 67/Min; sinus arrhythmias; [place] prolongation to 244 milliseconds; [place]. [id number], Complete Assessment & Plan Assessment & Plan (1) Atherosclerotic cardiovascular disease: Code(s): I25.10 - Atherosclerotic heart disease of [place] coronary artery without angina pectoris Category: Medical (2) Essential hypertension: Code(s): I10 - Essential (primary) hypertension Category: Medical (3) Other and unspecified hyperlipidemia: Code(s): E78.5 - Hyperlipidemia, unspecified Category: Medical (4) Obstructive sleep apnea syndrome in adult: Code(s): G47.33 - Obstructive sleep apnea (adult) (pediatric) Category: Medical (5) First degree heart block: Code(s): I44.0 - Atrioventricular block, first degree Category: Medical (6) Morbid obesity: Code(s): E66.01 - Morbid (severe) obesity due to excess calories Category: Medical Plan Calcium scoring CT scan -2021- Left main -46. LAD -67. Circumflex-0. Right coronary artery -0. Total score 113. Ehocardiogram 2017 that shows LVEF of 55-60% with mild diastolic dysfunction but no valvular issues. Risk factors for coronary disease include age, weight, hypertension, hyperlipidemia, obstructive sleep apnea. Overall, mainly risk factor modification. Weight loss as much able. For blood pressure, on valsartan and dose has been increased recently by PCP per patient. Also on hydrochlorothiazide. Normal blood pressure today. He can continue to do home blood pressure checks. For dyslipidemia, on statins. Last LDL 76 mg/dL. Triglycerides 107 mg/dL. For COLUMBA, suspect he is on a mandibular advancement type device. Most recent sleep study shows mild [place]UM[place] only. With regard to the first-degree heart block, no specific implications. Will need to follow EKGs yearly. CO interval is same as last year. Discussed. Discussion Notes I discussed with the patient the current status of his cardiovascular health, emphasizing that his treatment with Valsartan is effectively managing his blood pressure. We addressed the accuracy of home blood pressure monitors, acknowledging variance in readings but ensuring that readings consistently high need further attention. There are no current symptoms indicating progression of his mild coronary artery disease, so no changes in management are needed. The mandibular advancement device remains a suitable solution for his obstructive sleep apnea. The patient consented to maintain the current regimen and will follow up regularly or as needed. Patient was informed and verbally consented to the use of an ambient scribe for clinic note documentation during this visit. Patient Instructions: - Continue your current medication as prescribed. - Monitor your blood pressure regularly and note if readings frequently exceed 140/90mmHg. - Continue using your mandibular advancement device for sleep apnea. - Watch for any changes in chest pain or pressure and report them if they occur. - Follow up annually or sooner if any symptoms or concerns arise. Coding Level of Care Code Est Pt Level 4 (15679) Diagnoses Atherosclerotic cardiovascular disease I25.10 Essential hypertension I10 Other and unspecified hyperlipidemia E78.5 Obstructive sleep apnea syndrome in adult G47.33 First degree heart block I44.0 Morbid obesity E66.01 CPT Codes EKG - CPT: 20318-[id number], Complete ([id number])
== END 2024-12-07 10:19 | disposition home or self-care (01) ==
LOC: HO.HCS 09:58
PROVIDERS: PCP Internal Medicine; Visit Provider Internal Medicine
DX: I25.10 Atherosclerotic heart disease of native coronary artery without angina pectoris (principal); I10 Essential (primary) hypertension; E78.5 Hyperlipidemia, unspecified; G47.33 Obstructive sleep apnea (adult) (pediatric); I44.0 Atrioventricular block, first degree; E66.01 Morbid (severe) obesity due to excess calories
CPT/HCPCS: 93010; 99214

== ENCOUNTER → 2024-12-07 09:57 | Outpatient (BNVA) | payer OTHER, SELFPAY | PROVIDERS: PCP Internal Medicine; Visit Provider Internal Medicine | DX: I25.10 Atherosclerotic heart disease of native coronary artery without angina pectoris (principal); I10 Essential (primary) hypertension; I44.0 Atrioventricular block, first degree | CPT/HCPCS: 93005 ==

== ENCOUNTER 2025-02-22 10:34 | Outpatient (REF) | payer OTHER, SELFPAY ==
--- OUTSIDE RECORDS SUMMARY | 2025-02-22 11:54 | XMS_ITS ---
Author Name [facility] Organization Unknown History of Medication Use Medication Directions Dispensed Refills Start Date End Date Stat us amoxicillin (AMOXIL) 500 MG tablet TAKE 4 TABLETS 1 HOUR PRIOR TO DENTAL APPOINTMENT AND 2 TABLETS 6 HOURS AFTER DENTAL APPOINTMENT 01/06/2024 active methocarbamol (ROBAXIN) 750 MG tablet Take 1 tablet (750 mg total) by mouth 4 (four) times a day as needed for muscle spasms. 09/20/2023 09/28/2023 active oxyCODONE (ROXICODONE) 5 MG immediate release tablet Take 1 tablet (5 mg total) by mouth Every 4 (four) to 6 (six) hours as needed for severe pain. This is a 1 week supply Max Daily Amount: 30 mg 09/20/2023 09/28/2023 active cephalexin (KEFLEX) 500 MG capsule Take 1 capsule (500 mg total) by mouth 3 times daily (every 8 hours). 09/20/2023 09/22/2023 active meloxicam (MOBIC) 15 MG tablet Take 1 tablet (15 mg total) by mouth daily as needed (pain). Take with food in the morning 09/20/2023 active No known medications No known medications active Problems Problem Status Onset Date Problem Type Date of Resolution Source Status post unicompartmental knee replacement active [facility] Encounters Encounter Type Encounter Reason Primary Diagnosis Location Date Ambulatory [facility] 01/13/2024 Ambulatory Presence of unspecified artificial knee joint Presence of unspecified artificial knee joint [employer] 01/13/2024 Ambulatory Presence of unspecified artificial knee joint Presence of unspecified artificial knee joint [employer] [facility] 10/14/2023 Ambulatory Presence of unspecified artificial knee joint Presence of unspecified artificial knee joint [employer] 10/14/2023 Ambulatory MODIFY Unilateral prima ry osteoarthritis, right knee [facility] 09/21/2023 Ambulatory Unilateral primary osteoarthritis, right knee Unilateral primary osteoarthritis, right knee [facility] 08/05/2023 Care Team Organization Name Specialty Phone Email Start Date End Da jorge [facility] 08/10/2023 [facility] 08/05/2023 09/14/19 [employer] [facility] 08/05/2023 [employer] 07/22/2023 07/22/2023
--- OUTSIDE RECORDS SUMMARY | 2025-02-22 11:54 | XMS_ITS | Encounter Summary ---
Author Organization [facility] Address [address] [place] [address] Care Team Providers Care Business Quality Assurance Analyst Name Role Phone Jose M Mackey MD Primary Care Provider [phone] Encounter Details Date Type Department Care Team (Late st Contact Info) Description 10/06/2023 Scanned Document [facility] [address] [address] Jarrett Jim MD [address] [address] Social History Tobacco Use Types Packs/Day Years Used Date Smoking Tobacco: Never Assessed Sex and Gender Information Value Date Recorded Sex Assigned at Male 07/19/2023 11:40 AM EST Legal Sex Male 2:50 PM EDT Gender Identity Male 09/16/2023 3:26 PM EDT Sexual Orientation Heterosexual (straight) 09/15 3:26 PM EDT documented as of this encounter Plan of Treatment Not on file documented as of this encounter Visit Diagnoses Not on filedocumented in this encounter Care Teams Business Quality Assurance Analyst Relationship Specialty Start Date End Date Jose M Mackey MD [address] [place] [address] PCP - General Internal Medicine 08/05/23 documented as of this encounter
--- OUTSIDE RECORDS SUMMARY | 2025-02-22 11:55 | XMS_ITS | Clinical Summary ---
Author Organization [facility] Address [address] [place] [address] Phone Care Team Providers Care Automotive Parts Counter Assistant Name Role Phone Jose M Mackey MD Unavailable [phone] Angely Buckley NP Unavailable [phone] Jose M Mackey MD Primary Care Provider [phone] Sherrie Dixon MD Unavailable [phone] Allergies No known active allergies Medications vitamins A,C,N-pcgc-kakyie (PRESERVISION AREDS) 4,296 mcg-226 mg-90 mg Cap Take 1 capsule by mouth 2 (two) times a day with meals. Active triamcinolone acetonide 0.1 % cream Apply 1 Application topically daily as needed. 024 Active sildenafiL (VIAGRA) 100 mg tabletIndications:Erect ile dysfunction, unspecified erectile dysfunction type Take 1 tablet (100 mg total) by mouth daily as needed (ed). 10 tablet 5 025 Active atorvastatin (LIPITOR) 20 MG tabletIndications:Pure hypercholesterolemia TAKE 1 TABLET BY MOUTH EVERY DAY 90 tablet 3 025 Active hydroCHLOROthiazide 25 MG tabletIndications:Hyper tension TAKE 1 TABLET BY MOUTH EVERY DAY 90 tablet 3 025 Active tirzepatide, weight loss, (ZEPBOUND) 2.5 mg/0.5 mL subcutaneous solution vialIndications:Class 2 severe obesity due to excess calories with serious comorbidity and body mass index (BMI) of 35.0 to 35.9 in adult,Impaired fasting blood sugar,Obstructive sleep apnea of adult Inject 0.5 mL (2.5 mg total) under the skin every 7 days. 2 mL 025 Active valsartan (DIOVAN) 160 MG tabletIndications:Prima ry hypertension Take 160 mg and 80 mg, total of 240 mg by mouth daily. 90 tablet 3 025 Active valsartan (DIOVAN) 80 MG tabletIndications:Prima ry hypertension Take 80 mg and 160 mg, total of 240mg by mouth daily. 90 tablet 3 025 Active Active Problems Problem Noted Date Diagnosed Date Hypertension 05/03/2017 Impaired fasting glucose 05/03/2017 Chronic pain of left knee 05/03/2017 Obstructive sleep apnea syndrome 05/03/2017 Immunizations Immunization Administration Dates Next Due COVID-19 (Pre-04/19) Pfizer Vaccine, mRNA, PF 07/07/2020,06/14/2020 INFLUENZA, SPLIT VIRUS, TRIV ALENT W/ PRESERVATIVE IM 04/20/2016,04/04/2014,05/15/2011 Influenza High-Dose Trivalen t Preservative Free IM 05/08/2024 Influenza Quadrivalent Prese rvative Free IM 04/21/2023,04/28/2022,04/10/2021,04/03,04/25/2019,04/21/2018 Influenza Quadrivalent w/ Pr eservative IM 05/04/2017 Influenza trivalent preserva tive free intradermal 04/13/2013 Influenza, Unspecified Formulation 04/29/2021 Pneumococcal conjugate PCV13 05/03/2017 Pneumococcal polysaccharide PPSV23 05/09/2018 Tdap 05/23/2019,06/28/2008 Zoster live 04/18/2015 Zoster recombinant 03/11/2021,2020 Family History Medical History Relation Comments No Known Problems Brother Heart disease Father Dementia Mother Relation Status Comments Brother Alive Father (Age 89) Mother (Age 93) at 93 y/o Sister Alive Social History Tobacco Use Types Packs/Day Years Used Date Smoking Tobacco: Former Cigarettes 1 15 1 07/03/1969 - 05/03/1985 Smokeless Tobacco: Never Tobacco Cessation:Counseling Given: Not Answered Alcohol Use Standard Drinks/Week Comments Yes 4 (1 standard drink = 0.6 oz pur e alcohol) Child or Family Care Answer Date Record ed Do you have problems with on e of the following making it difficult for you to work, study, or receive health care? No 06/10/2021 Education Answer Date Recorded Are you interested in more education? Not on linnea e 06/15/2024 Are you concerned about learning? Not on file 06/15/2024 No 06/15/2024 No 06/15/2024 Food Answer Date Recorded Within the past 6 months we worried whether our food would run out before we got money to buy more. Never True 06/15/2022 Within the past 6 months the food we bought just didn't last and we didn't have enough money to get more. Never True Residential Stability Answer Date Recor ded What is your housing situation today? I have susannah acuña 06/15/2022 Number of times moved in last year Not on file 06/15/2022 Paying for Meds Answer Date Recorded Do you have trouble paying for medicines? No 06/10/2021 Paying Utility Bills Answer Date Record ed Do you have trouble paying your heating or elect ricity bill? No 06/15/2022 Transportation Answer Date Recorded Has the lack of transportati on kept you from medical appointments or from getting medications? No 06/15/2022 Unemployment Answer Date Recorded Are you currently unemployed or working on a part-time or temporary basis, and looking for work? No 06/15/2022 Digital Access Answer Date Recorded No 11/18/2022 No 11/18/2022 Reliable internet access at home? Not on file 11/18/2022 Device with a working camera? Not on file Intimate Partner Violence Answer Date R ecorded Denied Basic Needs Not on file 08/17/2024 In the past 12 months have y ou been in a relationship with a person who hurts, threatens, or tries to control you? No 08/17/2024 Worried food would run out Not on file 08/17 In the past 12 months have y ou been in a relationship with a person who hurts, threatens, or tries to control you? No 08/17/2024 Sex and Gender Information Value Date Recorded Sex Assigned at Male 11/15/2019 4:13 PM EDT Legal Sex Male 10:36 PM EDT Gender Identity Male 11/15/2019 4:13 PM EDT Sexual Orientation Straight 11/15/2019 4: 13 PM EDT Last Filed Vital Signs Vital Sign Reading Time Taken Comments Blood Pressure 140/82 08/17/2024 2:43 PM EST Pulse 83 08/17/2024 2:43 PM EST Temperature 36.4 C (97.5 F) 08/17/2024 2:43 PM EST Respiratory Rate 12 08/17/2024 2:43 PM EST Oxygen Saturation 96% 08/17/2024 2:43 PM EST Inhaled Oxygen Concentration - - Weight 115.3 kg (254 lb 3.2 oz) 08/17/2024 2:43 PM EST Height 178.6 cm (5' 10.32 ) 08/17/2024 2:[address] Body Mass Index 36.15 08/17/2024 2:43 PM EST Plan of Treatment Upcoming Encounters Date Type Department Care Team (Late st Contact Info) Description 04/13/2025 3:30 PM EDT Office Visit [facility] Internal Medicine [address] [place] [address] Jose M Mackey MD [address] [place] [address] [email or web address] Health Maintenance Due Date Last Done Comments COLOGUARD 12/08/1996 FIT TEST 12/08/1996 FOBT 12/08/1996 SIGMOIDOSCOPY 12/08/1996 VIRTUAL COLONOSCOPY 12/08/1996 COVID-19 VACCINE ( season) 2024 05/08/2024, 07/16/2023, 06/25/2022, Additional history exists INFLUENZA VACCINE (#1) 2025 , 04/21/2023, 04/28/2022, Additional history exists BLOOD PRESSURE 02/14/2025 08/17/2024 COLONOSCOPY 05/16/2025 05/16/2020, 04/28, 06/06/2015 COLORECTAL CANCER SCREENING 05/16/2025 CREATININE LEVEL 07/06/2025 07/06/2024, 05/2024, 09/07/2023, Additional history exists POTASSIUM LEVEL 07/06/2025 07/06/2024, 08/26, 05/28/2023, Additional history exists DEPRESSION SCREENING 08/17/2025 08/17/2024 RSV VACCINE (1 - 1-dose 75+ series) 12/08/2026 Adult Td,Tdap Booster 05/23/2029 05/23/2019, 009 LIPID PANEL 07/06/2029 07/06/2024, 02/2025, 07/06/2024, Additional history exists PNEUMOCOCCAL VACCINES (50+ years) Completed 05/09/2018, 05/03/2017 HEPATITIS C SCREENING Completed 04/30/2020, 020 ZOSTER VACCINES Completed 03/11/2021, 11/26, 04/18/2015 ABDOMINAL AORTIC ANEURYSM (AAA) SCREENING Completed 07/09/2023, 07/23/2020 SMOKING STATUS SCREENING (Once After 26 Yrs) Completed 08/17/2024 HEPATITIS A VACCINES Aged Out No long er eligible based on patient's age to complete this topic HIB VACCINES Aged Out No longer eligi ble based on patient's age to complete this topic MENINGOCOCCAL VACCINES (ACWY) Aged Out No longer eligible based on patient's age to complete this topic MENINGOCOCCAL VACCINES (B) Aged Out N o longer eligible based on patient's age to complete this topic Medical Devices Not on file Procedures Procedure Name Priority Date/Time Associated Diagnosis Comments OUTSIDE HDL Routine 07/06/2024 OUTSIDE POTASSIUM LEVEL Routine 07/06/2024 OUTSIDE SERUM CREATININE LEVEL Routine 07/06/2024 CT ABDOMEN/PELVIS Routine 07/09/2023 2:4 5 PM EST Right lower quadrant pain HM COLONOSCOPY FOR RESULT ENTRY ONLY Routine 05/16/2020 OUTSIDE HEPATITIS C VIRUS SCREENING Routine 04/30/2020 from Last 3 Months or Most Recently Relevant to Health Maintenance Results * Outside Potassium Level (07/06/2024) Potassium level - External 3.9 3.4 - 5.0 mmol/L EXTERNAL NON-INTERFACED REF LAB Result [facility] Provider MD LAB BLOOD ORDERABLES Cris l Result Performing Organization Address City/[facility]/ZIP Co de Phone Number EXTERNAL NON-INTERFACED REF LAB * Outside Serum Creatinine Level (07/06/2024) Creatinine, serum - External 0.83 0.8 - 1.3 mg/dL EXTERNAL NON-INTERFACED REF LAB Result [facility] Provider MD LAB BLOOD ORDERABLES Cris l Result EXTERNAL NON-INTERFACED REF LAB * (ABNORMAL) Outside HDL (07/06/2024) HDL - External 37(A) 40 - 80 mg/dL EXTERNAL NON-INTERFACED REF LAB Result [facility] Provider LAB BLOOD ORDERABLES Cris l Result Performing Organization Address [facility] Co de Phone Number EXTERNAL NON-INTERFACED REF LAB * CT Abdomen/Pelvis (07/09/2023 2:45 PM EST) Anatomical Region Laterality Modality Abdomen, Pelvis CT Diagnostic Result [facility] Jose M Mackey MD IMG CT ABD/PELVIS Final Resul t * HM COLONOSCOPY FOR RESULT ENTRY ONLY (05/16/2020) Result [facility] Historical Provider HEALTH MAINTENANCE Final Result * Outside Hepatitis C Virus Screening (04/30/2020) Pathologist [facility] Hepatitis C Screening - External Neg Result [facility] Provider LAB BLOOD ORDERABLES Cris l Result from Last 3 Months or Most Recently Relevant to Health Maintenance Insurance [employer] BENEFITS ADMINISTRATORS [employer] Int[employer]MINIST[employer]ATORS [employer]ATORS Care Teams Automotive Parts Counter Assistant Relationship Specialty Start Date End Date Jose M Mackey MD [address] [place] [address] [email or web address] PCP - General Internal Medicine 05/03/17 Jose M Mackey MD [address] [place] [address] Historical LMR Provider 04/17/17 Angely Buckley NP [address] [place] [address] Historical LMR Provider 04/17/17 Sherrie Dixon MD [address] [place] [address] General Surgery 06/10/20 Additional Source Comments The information contained in this document represents components of the legal health record. It is not the complete legal health record.[facility]
--- OUTSIDE RECORDS SUMMARY | 2025-02-22 11:55 | XMS_ITS | Encounter Summary ---
Author Organization [facility] Address [address] [place] [address] Care Team Providers Care Driller Portable Name Role Phone Jose M Mackey MD Primary Care Provider [phone] Encounter Details Date Type Department Care Team (Late st Contact Info) Description 09/21/2023 Scanned Document [facility] [address] [phone] Jarrett Jim MD [address] [place] [address] Social History Tobacco Use Types Packs/Day Years [...] on filedocumented in this encounter Care Teams Driller Portable Relationship Specialty Start Date End Date Jose M Mackey MD [address] [place] [address] PCP - General Internal Medicine 08/05/23 documented as of this encounter
--- OUTSIDE RECORDS SUMMARY | 2025-02-22 11:55 | XMS_ITS | Encounter Summary ---
Author Organization [facility] Address [address] [place] [address] Care Team Providers Care Probation Counselor Name Role Phone Jose M Mackey MD Primary Care Provider [phone] Encounter Details Date Type Department Care Team (Late st Contact Info) Description 10/19/2023 Scanned Document [facility] [address] [phone] Jarrett Jim MD [address] [place] [address] Social History Tobacco Use Types Packs/Day Years [...] on filedocumented in this encounter Care Teams Probation Counselor Relationship Specialty Start Date End Date Jose M Mackey MD [address] [place] [address] PCP - General Internal Medicine 08/05/23 documented as of this encounter
--- OUTSIDE RECORDS SUMMARY | 2025-02-22 11:55 | XMS_ITS | Encounter Summary ---
Author Organization [facility] Address [address] [place] [address] Phone Care Team Providers Care Hand Booked Folder And Stitcher Name Role Phone Jose M Mackey MD Unavailable Angely Buckley DIAGNOSTIC ASSISTANT Unavailable [phone] Jose M Mackey MD Primary Care Provider Sherrie Dixon MD Unavailable [phone] Encounter Details Date Type Department Care Team (Late st Contact Info) Description 06/01/2018 Ancillary Orders [address] [address] Lilia Baca MD [address] [place] [address] Orthopedics & Sports Medicine, [place], [place] [phone] [email or web address] Left knee pain, unspecified chronicity Social History Tobacco Use Types Packs/Day Years Used Date Smoking Tobacco: Former Cigarettes 1 15 1 07/03/1969 - 05/03/1985 Smokeless Tobacco: Former Alcohol Use Standard Drinks/Week Comments Yes 7 (1 standard drink = 0.6 oz pur e alcohol) Sex and Gender Information Value Date Recorded Sex Assigned at Male 11/15/2019 4:13 PM EDT Legal Sex Male 10:36 PM EDT Gender Identity Male 11/15/2019 4:13 PM EDT Sexual Orientation Straight 11/15/2019 4: 13 PM EDT documented as of this encounter Plan of Treatment Upcoming Encounters Date Type Department Care Team (Late st Contact Info) Description 04/13/2025 3:30 PM EDT Office Visit [facility] Internal Medicine [address] [place] [address] Jose M Mackey MD [address] [place] [address] [email or web address] documented as of this encounter Results * XR KNEE 4 OR MORE VIEWS (LEFT) (06/01/2018 3:45 PM EST) Narrative SYSTEMGENERATED, DOCUMENTATION - 06/01/2018 3:45 PM EST This image report has been auto-finalized and has not been read by a Radiologist. Interpretation has been included in the provider encounter note for this date of service. us Lilia Baca MD IMG XR LOWER EXTREMITY Fi nal Result documented in this encounter Visit Diagnoses Diagnosis Left knee pain, unspecified chronicity Left knee pain, unspecified chronicity documented in this encounter Additional Health Concerns Assessment Noted Time PHQ-2 Depression Total Score: 0 05/09/20 18 1:08 PM EST documented as of this encounter Care Teams Hand Booked Folder And Stitcher Relationship Specialty Start Date End Date Jose M Mackey MD [address] [place] [address] PCP - General Internal Medicine 05/03/17 Jose M Mackey MD [address] [place] [address] Historical LMR Provider 04/17/17 Angely Buckley NP [address] [place] [address] Historical LMR Provider 04/17/17 Sherrie Dixon MD [address] [place] [address] General Surgery 06/10/20 documented as of this encounter Additional Source Comments The information contained in this document represents components of the legal health record. It is not the complete legal health record.[facility]
--- OUTSIDE RECORDS SUMMARY | 2025-02-22 11:55 | XMS_ITS | Encounter Summary ---
Author Organization [facility] Address [address] [place] [address] Phone Care Team Providers Care Sportspersons Name Role Phone Jose M Mackey MD Unavailable [phone] Angely Buckley NP Unavailable [phone] Jose M Mackey MD Primary Care Provider [phone] Sherrie Dixon MD Unavailable [phone] Encounter Details Date Type Department Care Team (Late st Contact Info) Description 06/01/2018 Ancillary Orders [facility] Medicine [address] [place] [phone] Lilia Baca MD [address] [place] [address] Orthopedics & Sports Medicine, [facility] [place], [place] [phone] [email or web address] Social History Tobacco Use Types Packs/Day Years [...] Description 04/13/2025 3:30 PM EDT Office Visit [facility] Internal Medicine [address] [place] [address] Jose M Mackey MD [address] [place] [address] documented as of this encounter Visit Diagnoses Not on filedocumented in this encounter Additional Health Concerns Assessment Noted Time PHQ-2 Depression Total Score: 0 05/09/20 18 1:08 PM EST documented as of this encounter Care Teams Sportspersons Relationship Specialty Start Date End Date Jose M Mackey MD [address] [place] [address] PCP - General Internal Medicine 05/03/17 Jose M Mackey MD [address] [place] [address] Historical LMR Provider 04/17/17 Angely Buckley NP [address] [place] [address] Historical LMR Provider 04/17/17 Sherrie Dixon MD [address] [place] [address] General Surgery 06/10/20 documented as of this encounter Additional Source Comments The information contained in this document represents components of the legal health record. It is not the complete legal health record.[facility]
--- OUTSIDE RECORDS SUMMARY | 2025-02-22 11:55 | XMS_ITS | Encounter Summary ---
Author Organization [facility] Address [address] [place] [address] Care Team Providers Care Instrumentation Manager Name Role Phone Jose M Mackey MD Primary Care Provider [phone] Encounter Details Date Type Department Care Team (Late st Contact Info) Description 09/24/2023 Scanned Document [facility] [address] [phone] Jarrett Jim MD [address] [place] [address] Social History Tobacco Use Types Packs/Day Years [...] on filedocumented in this encounter Care Teams Instrumentation Manager Relationship Specialty Start Date End Date Jose M Mackey MD [address] [place] [address] PCP - General Internal Medicine 08/05/23 documented as of this encounter
--- OUTSIDE RECORDS SUMMARY | 2025-02-22 11:55 | XMS_ITS | Clinical Summary ---
Author Organization [facility] Address [address] [place] [address] Care Team Providers Care Hand Patcher Name Role Phone Jose M Mackey MD Primary Care Provider Allergies No known active allergies Medications meloxicam (MOBIC) 15 MG tabletIndications:St atus post right knee replacement Take 1 tablet (15 mg total) by mouth daily as needed (pain). Take with food in the morning 30 tablet 09/20/19 24 Active oxyCODONE (ROXICODONE) 5 MG immediate release tabletIndications:St atus post right knee replacement Take 1 tablet (5 mg total) by mouth Every 4 (four) to 6 (six) hours as needed for severe pain. This is a 1 week supply Max Daily Amount: 30 mg 42 tablet 09/20/19 24 Active methocarbamol (ROBAXIN) 750 MG tabletIndications:St atus post right knee replacement Take 1 tablet (750 mg total) by mouth 4 (four) times a day as needed for muscle spasms. 60 tablet 09/20/19 24 Active amoxicillin (AMOXIL) 500 MG tabletIndications:St atus post unicompartmental knee replacement TAKE 4 TABLETS 1 HOUR PRIOR TO DENTAL APPOINTMENT AND 2 TABLETS 6 HOURS AFTER DENTAL APPOINTMENT 6 tablet 2 05/05/20 24 025 Active amoxicillin (AMOXIL) 500 MG tabletIndications:St atus post unicompartmental knee replacement TAKE 4 TABLETS 1 HOUR PRIOR TO DENTAL APPOINTMENT AND 2 TABLETS 6 HOURS AFTER DENTAL APPOINTMENT 6 tablet 2 09/06/19 25 026 Active amoxicillin (AMOXIL) 500 MG tabletIndications:St atus post unicompartmental knee replacement TAKE 4 TABLETS 1 HOUR PRIOR TO DENTAL APPOINTMENT AND 2 TABLETS 6 HOURS AFTER DENTAL APPOINTMENT 6 tablet 2 12/13/19 25 026 Active amoxicillin (AMOXIL) 500 MG tabletIndications: atus post unicompartmental knee replacement TAKE 4 TABLETS 1 HOUR PRIOR TO DENTAL APPOINTMENT AND 2 TABLETS 6 HOURS AFTER DENTAL APPOINTMENT 6 tablet 2 02/03/20 24 025 Active Problems No known active problems Encounters Date Type Department Care Team Description 12/12/2024 Refill [facility] [address] [address] Jarrett Jim MD Status post unicompartmental knee [...] Health Maintenance Due Date Last Done Comments Advance Care Planning 1950 Hepatitis C Virus Screening 1950 DTaP/Tdap/Td Vaccines (1 - Tdap) 12/08/1970 Colonoscopy 12/08/1996 Pneumococcal Vaccines 50+ (1 of 1 - PCV) 12/08/2001 Zoster (Shingles) Vaccine (1 of 2) 12/08/2001 COVID-19 Vaccine (3 - season) 2024 07/07/2020, 06/14/2020 Influenza Vaccine 01/26/2025 04/21/2023, , 04/29/2021, Additional history exists RSV Vaccine 60 years and older and Patients (1 - 1-dose 75+ series) 12/08/2026 Hepatitis B Vaccines Aged Out No long er eligible based on patient's age to complete this topic Insurance [employer] OUT OF STATE - PPO Care Teams Hand Patcher Relationship Specialty Start Date End Date Jose M Mackey MD [address] [place] [address] PCP - General Internal Medicine 08/05/23
--- OUTSIDE RECORDS SUMMARY | 2025-02-22 11:55 | XMS_ITS | Encounter Summary ---
Author Organization [facility] Address [address] [place] [address] Phone Care Team Providers Care Senior Data Scientist Name Role Phone Jose M Mackey MD Unavailable [phone] Angely Buckley TYPE PHOTOGRAPHY SUPERVISOR Unavailable [phone] Jose M Mackey MD Primary Care Provider [phone] Sherrie Dixon MD Unavailable [phone] Encounter Details Date Type Department Care Team (Late st Contact Info) Description 08/31/2024 Documentation [facility] [place] Internal Medicine [address] [place] [address] Jose M Mackey MD [address] [place] [address] [email or web address] Social History Tobacco Use Types Packs/Day Years Used Date Smoking Tobacco: Former Cigarettes 1 15 1 07/03/1969 - 05/03/1985 Smokeless Tobacco: Never Alcohol Use Standard Drinks/Week Comments Yes 4 [...] Description 04/13/2025 3:30 PM EDT Office Visit [facility] Internal Medicine [address] [place] [address] Jose M Mackey MD [address] [place] [address] [email or web address] documented as of this encounter Visit Diagnoses Not on filedocumented in this encounter Additional Health Concerns Assessment Noted Time PHQ-2 Depression Total Score: 2 08/17/19 25 2:24 PM EST documented as of this encounter Care Teams Senior Data Scientist Relationship Specialty Start Date End Date Jose M Mackey MD [address] [place] [address] [email or web address] PCP - General Internal Medicine 05/03/17 Jose M Mackey MD [address] [place] [address] [email or web address] Historical LMR Provider 04/17/17 Angely Buckley NP [address] [place] [address] [email or web address] Historical LMR Provider 04/17/17 Sherrie Dixon MD [address] [place] [address] General Surgery 06/10/20 documented as of this encounter Additional Source Comments The information contained in this document represents components of the legal health record. It is not the complete legal health record.[facility]
[2025-02-22 14:55] LABS: Anion Gap 12 (12-20); Blood Urea Nitrogen 18 mg/dL (9-16); Calcium 9.0 mg/dL (8.4-10.2); Carbon Dioxide 28 mmol/L (22-29); Chloride 103 mmol/L (96-108); Estimated Glomerular Filt Rate > 60; Potassium 4.1 mmol/L (3.3-5.1); Sodium 139 mmol/L (135-145)
[2025-02-22 15:15] LABS: Hemoglobin A1C 155.6699 umol/L; Total Hemoglobin (HGBA1C) 4210.9844 umol/L
== END 2025-02-22 10:35 | disposition home or self-care (01) ==
LOC: HO.WFDLDS 10:34
PROVIDERS: Visit Provider Internal Medicine
DX: I10 Essential (primary) hypertension (principal); R73.01 Impaired fasting glucose
CPT/HCPCS: 36415; 80048; 83036

== ENCOUNTER 2025-04-27 09:34 | Outpatient (AMB) | payer OTHER, SELFPAY ==
[2025-04-27 09:43] VITALS: BP 106/68; PULSE 73; RESP 16; O2SAT 97; BMI 34.7
--- NOTE | 2025-04-27 09:43 | A.OFFVIS_ITS ---
Vital Signs 04/27/25 09:43 Height 5 ft 11 in Weight 249 lb BMI 34.7 BP 106/68 Blood Pressure Location Lt brachial Position Sitting Respiration 16 Pulse 73 Pulse Source Pulse Oximeter Pulse Oximetry (%) 97 Oxygen Delivery Method Room Air Intake Visit Reasons: Back Pain JANNETH: 10/04/23 Counter Stacker Required: No Accompanied by: Spouse Allergies No Known Allergies Allergy (Verified 04/27/25 09:46) Medication List - Last Reconciled 04/27/25 by Mindi Weber LPN atorvastatin 20 mg PO BEDTIME hydrochlorothiazide 25 mg PO DAILY valsartan 240 mg PO DAILY HPI HPI Back Pain JANNETH: 10/04/23: Details: History of Present Illness The patient is a 74-year-old male presenting with lumbar spinal stenosis and as sociated pain. The patient was last seen approximately 1.5 years ago for an epidural steroid injection, which provided significant relief at that time. Recently, the patient resumed activities such as lifting logs and splitting wood, which exacerbated his symptoms. The pain is primarily located in the lower back, with radiation to the right side and down the leg, occasionally affecting the groin area. The patient describes the pain as burning and notes difficulty standing due to the discomfort. The patient has a history of severe stenosis at the L4-5 level, as indicated by a previous MRI, leading to the decision to administer injections at the L3-4 level. The patient also reports right hip pain, which is suspected to be due to osteoarthritis, as confirmed by a prior CT scan. The patient has been prescribed meloxicam for pain management, which he uses intermittently, particularly when engaging in activities that strain his knee. He is also on medications for blood pressure management, including valsartan, atorvastatin, and hydrochlorothiazide. Pain Description - Onset: Pain exacerbated by lifting logs and splitting wood. - Quality: Described as burning pain. - Location: Primarily in the lower back, radiating to the right side and leg, occasionally affecting the groin. - Exacerbating factors: Standing and physical activity. - Relieving factors: Previous epidural steroid injection provided relief. Physical Exam - Appears afebrile. - Alert and oriented. - Mood and affect appropriate. - Follows and participates in conversation appropriately. - Respiratory effort is unlabored. Results - MRI: Severe stenosis at L4-5 level. - CT Scan: Right hip osteoarthritis. Pain Management - Affect: Pain impacts the patient's ability to stand and perform activities like lifting logs. - Analgesia: Uses meloxicam intermittently for pain relief. - Adverse Effects: No adverse effects from meloxicam reported. - Activities of Daily Living: Pain affects standing and physical activities. - Aberrant Drug Related Behaviors: None reported. [facility] Medical History Atherosclerotic cardiovascular disease Increased BMI Obstructive sleep apnea syndrome in adult Tubular adenoma of colon Hypertension Surgical History History of colonoscopy History of carpal tunnel surgery of right wrist History of left knee replacement Previous back surgery Family History Father Tubular adenoma Brother Tubular adenoma Social History Are you a primary rehab care assistant to a significant other at home: No Do you presently have visiting nurse or other home services: No Alcohol intake: current Alcohol intake frequency: a few times a week Alcohol type: beer Patient Tobacco Use Status: Former Tobacco user Years Smoked: 15 +/- Advance Directives Date on File: 07/30/09 Physical Exam Vital Signs: Last Vital Signs Pulse 73 04/27/25 09:43 Resp 16 04/27/25 09:43 BP 106/68 04/27/25 09:43 Pulse Ox 97 04/27/25 09:43 Oxygen Delivery Method Room Air 04/27/25 09:43 BMI result Body Mass Index 34.7 Assessment & Plan Assessment & Plan (1) Right hip pain: Code(s): M25.551 - Pain in right hip Category: Medical (2) Lumbar radiculopathy: Code(s): M54.16 - Radiculopathy, lumbar region Category: Medical Plan Plan Patient was informed and verbally consented to the use of an ambient scribe for clinic note documentation during this visit. 1. Lumbar Spinal Stenosis with Radiculopathy - Plan to schedule an epidural steroid injection at L3-4 level. - Monitor pain levels and adjust treatment as necessary. 2. Right Hip Osteoarthritis - Order an x-ray of the hip to assess the extent of osteoarthritis. - Consider meloxicam for pain management, with caution regarding kidney function. Discussion Notes I discussed with the patient the plan to schedule an epidural steroid injection at the L3-4 level to manage lumbar spinal stenosis. We also reviewed the need for an x-ray of the hip to evaluate the extent of osteoarthritis and discussed the use of meloxicam for pain management, highlighting the importance of monitoring kidney function. Patient Instructions - Schedule an appointment for the epidural steroid injection. - Obtain an x-ray of the hip during the next visit. - Use meloxicam as needed for pain, but avoid routine use to protect kidney function. - Monitor blood pressure regularly, especially when taking meloxicam. Orders: Orders XR hip BI w PEL1V 04/27/25 M25.551 - Pain in right hip Medications: New meloxicam 15 mg PO DAILY 60 tabs 2RF Coding Level of Care Code New Pt Level 4 (84389) Diagnoses Right hip pain M25.551 Lumbar radiculopathy M54.16
--- OUTSIDE RECORDS SUMMARY | 2025-04-27 10:40 | XMS_ITS | Encounter Summary ---
Author Organization [facility] Address [address] [place] [address] Care Team Providers Care Any Commodity Buyer Name Role Phone Jose M Mackey MD Primary Care Provider [phone] Encounter Details Date Type Department Care Team (Late st Contact Info) Description 10/19/2023 Scanned Document [facility] [address] [phone] Jarrett Jim MD [address] [place] [address] Social History Tobacco Use Types Packs/Day [...] on filedocumented in this encounter Care Teams Any Commodity Buyer Relationship Specialty Start Date End Date Jose M Mackey MD [address] [place] [address] PCP - General Internal Medicine 08/05/23 documented as of this encounter
--- OUTSIDE RECORDS SUMMARY | 2025-04-27 10:40 | XMS_ITS | Encounter Summary ---
Author Organization [facility] Address [address] [place] [address] Phone Care Team Providers Care Online Marketing Director Name Role Phone Jose M Mackey MD Unavailable [phone] Angely Buckley NP Unavailable [phone] Jose M Mackey MD Primary Care Provider [phone] Sherrie Dixon MD Unavailable [phone] Encounter Details Date Type Department Care Team (Late st Contact Info) Description 06/01/2018 Ancillary Orders [facility] [address] [place] [address] Lilia Baca MD [address] [place] [address] Orthopedics & Sports Medicine, [facility] [place] [address] [email or web address] Social History Tobacco Use Types Packs/Day Years [...] Care Team (Late st Contact Info) Description 08/03/2025 1:30 PM EST Office Visit [facility] Internal Medicine [address] [place] [address] Jose M Mackey MD [address] [place] [address] documented as of this encounter Visit Diagnoses Not on filedocumented in this encounter Additional Health Concerns Assessment Noted Time PHQ-2 Depression Total Score: 0 05/09/20 18 1:08 PM EST documented as of this encounter Care Teams Online Marketing Director Relationship Specialty Start Date End Date Jose M Mackey MD [address] [place] [address] PCP - General Internal Medicine 05/03/17 Jose M Mackey MD [address] [place] [address] Historical LMR Provider 04/17/17 Angely Buckley NP [address] [place] [address] Historical LMR Provider 04/17/17 Sherrie Dixon MD [address] [place] [address] General Surgery 06/10/20 documented as of this encounter Additional Source Comments The information contained in this document represents components of the legal health record. It is not the complete legal health record.[facility]
--- OUTSIDE RECORDS SUMMARY | 2025-04-27 10:40 | XMS_ITS | Clinical Summary ---
Author Organization [facility] Address [address] [place] [address] Phone Care Team Providers Care Sanitation Worker Cleaning Machinery Name Role Phone Jose M Mackey MD Unavailable [phone] Angely Buckley NP Unavailable [phone] Jose M Mackey MD Primary Care Provider [phone] Sherrie Dixon MD Unavailable [phone] Allergies No known active allergies Medications vitamins A,C,L-gqgb-xvygtq (PRESERVISION AREDS) 4,296 mcg-226 mg-90 mg Cap Take 1 capsule by mouth 2 (two) times a day with meals. Active sildenafiL (VIAGRA) 100 mg tabletIndications:Erec tile dysfunction, unspecified erectile dysfunction type Take 1 tablet (100 mg total) by mouth daily as needed (ed). 10 tablet 5 2024 Active atorvastatin (LIPITOR) 20 MG tabletIndications:Pure hypercholesterolemia TAKE 1 TABLET BY MOUTH EVERY DAY 90 tablet 3 2024 Active hydroCHLOROthiazide 25 MG tabletIndications:Hype rtension TAKE 1 TABLET BY MOUTH EVERY DAY 90 tablet 3 2024 Active amoxicillin (AMOXIL) 500 MG tablet TAKE 4 TABLETS 1 HOUR PRIOR TO DENTAL APPOINTMENT AND 2 TABLETS 6 HOURS AFTER DENTAL APPOINTMENT 12/12 Active valsartan (DIOVAN) 160 MG tabletIndications:Prim micah hypertension Take 1 tablet (160 mg total) by mouth 2 (two) times a day. 180 tablet 3 2024 Active triamcinolone acetonide 0.1 % cream Apply 1 Application topically daily as needed. 04/13 Discontinued tirzepatide, weight loss, (ZEPBOUND) 2.5 mg/0.5 mL subcutaneous solution vialIndications:Class 2 severe obesity due to excess calories with serious comorbidity and body mass index (BMI) of 35.0 to 35.9 in adult,Impaired fasting blood sugar,Obstructive sleep apnea of adult Inject 0.5 mL (2.5 mg total) under the skin every 7 days. 2 mL 04/13 Discontinued valsartan (DIOVAN) 80 MG tabletIndications:Prim micah hypertension Take 80 mg and 160 mg, total of 240mg by mouth daily. 90 tablet 3 04/13 Discontinued valsartan (DIOVAN) 160 MG tabletIndications:Prim micah hypertension Take 160 mg and 80 mg, total of 240 mg by mouth daily. 90 tablet 3 04/13 Discontinued Active Problems Problem Noted Date Diagnosed Date Hypertension 05/03/2017 Impaired fasting glucose 05/03/2017 Chronic pain of left knee 05/03/2017 Obstructive sleep apnea syndrome 05/03/2017 Encounters Date Type Department Care Team Description 04/13/2025 3:30 PM EDT Office Visit [facility] Internal Medicine [address] [place] [address] Jose M Mackey MD Class 2 severe obesity due to excess calories with serious comorbidity and body mass index (BMI) of 35.0 to 35.9 in adult (Primary Dx); Primary hypertension; Need for prophylactic vaccination and inoculation against influenza; Screening for prostate cancer; Impaired fasting blood sugar; Pure hypercholesterolemia 03/19/2025 Telephone [facility] Internal Medicine [address] [place] [address] Jose M Mackey MD 02/27/2025 Orders Only [facility] Internal Medicine [address] [facility] [place] [address] Provider, MD Clarissa from Last 3 Months Immunizations Immunization Administration Dates Next Due COVID-19 (Pre-04/19) Pfizer Vaccine, mRNA, PF 07/07/2020,06/14/2020 INFLUENZA, SPLIT VIRUS, TRIVALENT PF 04/11/2025 INFLUENZA, SPLIT VIRUS, TRIV ALENT W/ PRESERVATIVE [...] Sign Reading Time Taken Comments Blood Pressure 145/96 04/13/2025 4:22 PM EDT Pulse 83 04/13/2025 3:50 PM EDT Temperature 36.7 C (98 F) 04/13/2025 3:31 PM EDT Respiratory Rate 12 08/17/2024 2:43 PM EST Oxygen Saturation 98% 04/13/2025 3:31 PM EDT Inhaled Oxygen Concentration - - Weight 114.3 kg (252 lb) 04/13/2025 3:31 PM EDT Height 178.6 cm (5' 10.32 ) 04/13/2025 3:31 PM E DT Body Mass Index 35.83 04/13/2025 3:31 PM EDT Plan of Treatment Upcoming Encounters Date Type Department Care Team (Late st Contact Info) Description 08/03/2025 1:30 PM EST Office Visit [facility] Internal Medicine [address] [place] [address] Jose M Mackey MD [address] [place] [address] [email or web address] Health Maintenance Due Date Last Done Comments COLOGUARD 12/08/1996 FIT TEST 12/08/1996 FOBT 12/08/1996 SIGMOIDOSCOPY 12/08/1996 VIRTUAL COLONOSCOPY 12/08/1996 COVID-19 VACCINE ( season) 2025 05/08/2024, 07/16/2023, 06/25/2022, Additional history exists COLONOSCOPY 05/16/2025 05/16/2020, 04/28, 06/06/2015 COLORECTAL CANCER SCREENING 05/16/2025 CREATININE LEVEL 07/06/2025 07/06/2024, 05/2024, 09/07/2023, Additional history exists POTASSIUM LEVEL 07/06/2025 07/06/2024, 08/26, 05/28/2023, Additional history exists DEPRESSION SCREENING 08/17/2025 08/17/2024 BLOOD PRESSURE 10/12/2025 04/13/2025 RSV VACCINE (1 - 1-dose 75+ series) 12/08/2026 Adult Td,Tdap Booster 05/23/2029 05/23/2019, 009 LIPID PANEL 07/06/2029 07/06/2024, 02/2025, 07/06/2024, Additional history exists PNEUMOCOCCAL VACCINES (50+ years) Completed 05/09/2018, 05/03/2017 HEPATITIS C SCREENING Completed 04/30/2020, 020 ZOSTER VACCINES Completed 03/11/2021, 11/26, 04/18/2015 ABDOMINAL AORTIC ANEURYSM (AAA) SCREENING Completed 07/09/2023, 07/23/2020 INFLUENZA VACCINE Completed 04/11/2025, , 04/21/2023, Additional history exists SMOKING STATUS SCREENING (Once After 26 Yrs) Completed 04/13/2025 HEPATITIS A VACCINES Aged Out No long [...] Name Priority Date/Time Associated Diagnosis Comments OUTSIDE LAB Routine 02/22/2025 11:24 AM EDT OUTSIDE HDL Routine 07/06/2024 OUTSIDE POTASSIUM LEVEL Routine 07/06/2024 OUTSIDE SERUM CREATININE LEVEL Routine 07/06/2024 CT ABDOMEN/PELVIS Routine 07/09/2023 2:4 5 PM EST Right lower quadrant pain HM COLONOSCOPY FOR RESULT ENTRY ONLY Routine 05/16/2020 OUTSIDE HEPATITIS C VIRUS SCREENING Routine 04/30/2020 from Last 3 Months or Most Recently Relevant to Health Maintenance Results * Outside Lab (02/22/2025 11:24 AM EDT) us Historical Provider MD LAB BLOOD ORDERABLES Cris l Result * Outside Potassium Level (07/06/2024) Potassium level - External 3.9 3.4 - 5.0 mmol/L EXTERNAL NON-INTERFACED REF LAB Historical Provider MD LAB BLOOD ORDERABLES Cris l Result EXTERNAL NON-INTERFACED REF LAB * Outside Serum Creatinine Level (07/06/2024) Pathologist [facility] Creatinine, serum - External 0.83 0.8 - 1.3 mg/dL EXTERNAL NON-INTERFACED REF LAB Result [facility] Historical Provider LAB BLOOD ORDERABLES Cris l Result EXTERNAL NON-INTERFACED REF LAB * (ABNORMAL) Outside HDL (07/06/2024) Pathologist [facility] HDL - External 37(A) 40 - 80 mg/dL EXTERNAL NON-INTERFACED REF LAB Result [facility] Provider LAB BLOOD ORDERABLES Cris l Result EXTERNAL NON-INTERFACED REF LAB * CT Abdomen/Pelvis (07/09/2023 2:45 PM EST) Anatomical Region Laterality Modality Abdomen, Pelvis CT Diagnostic Result [facility] Jose M Mackey MD IMG CT ABD/PELVIS Final Resul t * COLONOSCOPY FOR RESULT ENTRY ONLY (05/16/2020) Result [facility] Historical Provider HEALTH MAINTENANCE Final Result * Outside Hepatitis C Virus Screening (04/30/2020) Pathologist [facility] Hepatitis C Screening - External Neg Result [facility] Provider LAB BLOOD ORDERABLES Rcis l Result from Last 3 Months or Most Recently Relevant to Health Maintenance Insurance [employer] BENEFITS ADMINISTRATORS [employer] BENEFITS ADMINISTRATORS [employer] BENEFITS ADMINISTRATORS [employer] BENEFITS ADMINISTRATORS [employer] ADMINISTRATORS [employer] ADMINISTRATORS [employer] ADMINISTRATORS [employer] BENEFITS ADMINISTRATORS [employer] BENEFITS ADMINISTRATORS Care Teams Sanitation Worker Cleaning Machinery Relationship Specialty Start Date End Date Jose M Mackey MD [address] [place] [address] PCP - General Internal Medicine 05/03/17 Jose M Mackey MD [address] [place] [address] Historical LMR Provider 04/17/17 Angely Buckley NP [address] [place] [address] Historical LMR Provider 04/17/17 Sherrie Dixon MD [address] [place] [address] General Surgery 06/10/20 Additional Source Comments The information contained in this document represents components of the legal health record. It is not the complete legal health record.[facility]
--- OUTSIDE RECORDS SUMMARY | 2025-04-27 10:40 | XMS_ITS | Encounter Summary ---
Author Organization [facility] Address [address] [place] [address] Phone Care Team Providers Care Door Technician Name Role Phone Jose M Mackey MD Unavailable [phone] Angely Buckley NP Unavailable [phone] Jose M Mackey MD Primary Care Provider Sherrie Dixon MD Unavailable [phone] Encounter Details Date Type Department Care Team (Late st Contact Info) Description 08/31/2024 Documentation [facility] Internal Medicine [address] [place], [place] [id number] Jose M Mackey MD [address] [place] [address] [email or web address] Social History Tobacco Use Types Packs/Day Years [...] Description 08/03/2025 1:30 PM EST Office Visit [facility] Internal Medicine [address] [place] [address] Jose M Mackey MD [address] [place] [address] [email or web address] documented as of this encounter Visit Diagnoses Not on filedocumented in this encounter Additional Health Concerns Assessment Noted Time PHQ-2 Depression Total Score: 2 08/17/19 25 2:24 PM EST documented as of this encounter Care Teams Door Technician Relationship Specialty Start Date End Date Jose M Mackey MD [address] [place] [address] PCP - General Internal Medicine 05/03/17 Jose M Mackey MD [address] [place] [address] Historical LMR Provider 04/17/17 Angely Buckley NP [address] [place] [address] Historical LMR Provider 04/17/17 Sherrie Dixon MD [address] [place] [address] General Surgery 06/10/20 documented as of this encounter Additional Source Comments The information contained in this document represents components of the legal health record. It is not the complete legal health record.[facility]
--- OUTSIDE RECORDS SUMMARY | 2025-04-27 10:40 | XMS_ITS | Encounter Summary ---
Author Organization [facility] Address [address] [place] [address] Care Team Providers Care Biomedical Manager Name Role Phone Jose M Mackey MD Primary Care Provider [phone] Encounter Details Date Type Department Care Team (Late st Contact Info) Description 09/24/2023 Scanned Document [facility] [address] [phone] Jarrett Jim MD [address] [place] [address] Social History Tobacco Use Types Packs/Day Years [...] on filedocumented in this encounter Care Teams Biomedical Manager Relationship Specialty Start Date End Date Jose M Mackey MD [address] [place] [address] PCP - General Internal Medicine 08/05/23 documented as of this encounter
--- OUTSIDE RECORDS SUMMARY | 2025-04-27 10:40 | XMS_ITS | Encounter Summary ---
Author Organization [facility] Address [address] [place] [address] Care Team Providers Care Craft Manager Name Role Phone Jose M Mackey MD Primary Care Provider [phone] Encounter Details Date Type Department Care Team (Late st Contact Info) Description 09/21/2023 Scanned Document [facility] [address] [phone] Jarrett Jim MD [address] [place] [address] Social History Tobacco Use Types Packs/Day Years [...] on filedocumented in this encounter Care Teams Craft Manager Relationship Specialty Start Date End Date Jose M Mackey MD [address] [place] [address] PCP - General Internal Medicine 08/05/23 documented as of this encounter
--- OUTSIDE RECORDS SUMMARY | 2025-04-27 10:40 | XMS_ITS | Encounter Summary ---
Author Organization [facility] Address [address] [place] [address] Care Team Providers Care Business Administrator Name Role Phone Jose M Mackey MD Primary Care Provider [phone] Encounter Details Date Type Department Care Team (Late st Contact Info) Description 10/06/2023 Scanned Document [facility] [address] [phone] Jarrett Jim MD [address] [facility] [address] [place] [address] Social History Tobacco Use Types Packs/Day Years [...] filedocumented in this encounter Care Teams Business Administrator Relationship Specialty Start Date End Date Jose M Mackey MD [address] [place] [address] PCP - General Internal Medicine 08/05/23 documented as of this encounter
--- OUTSIDE RECORDS SUMMARY | 2025-04-27 10:40 | XMS_ITS | Clinical Summary ---
Author Organization [facility] Address [address] [place] [address] Care Team Providers Care Waterproofing Mixer Name Role Phone Jose M Mackey MD Primary Care Provider [phone] Allergies No known active allergies Medications meloxicam [...] 6 tablet 2 12/13/19 25 026 Active Active Problems No known active problems Social History Tobacco Use Types Packs/Day Years [...] Vaccine (1 of 2) 12/08/2001 Influenza Vaccine 01/26/2025 04/21/2023, , 04/29/2021, Additional history exists COVID-19 Vaccine (3 - 2024- season) 2025 07/07/2020, 06/14/2020 RSV Vaccine 50 years and older and Patients (1 - 1-dose 75+ series) 12/08/2026 Hepatitis B Vaccines Aged Out No long er eligible based on patient's age to complete this topic Insurance [facility] - PPO Care Teams Waterproofing Mixer Relationship Specialty Start Date End Date Jose M Mackey MD [address] [facility] [address] PCP - General Internal Medicine 08/05/23
--- OUTSIDE RECORDS SUMMARY | 2025-04-27 10:40 | XMS_ITS | Encounter Summary ---
Author Organization [facility] Address [address] [place] [address] Phone Care Team Providers Care Ic Engineer Name Role Phone Jose M Mackey MD Unavailable [phone] Angely Buckley NP Unavailable [phone] Jose M Mackey MD Primary Care Provider [phone] Sherrie Dixon MD Unavailable [phone] Encounter Details Date Type Department Care Team (Late st Contact Info) Description 06/01/2018 Ancillary Orders [address] [address] Lilia Baca MD [address] [place] [address] Orthopedics & Sports Medicine, [facility] [place] [address] [email or web address] Left knee pain, unspecified chronicity Social [...] Description 08/03/2025 1:30 PM EST Office Visit [facility] Internal Medicine [address] [place] [address] Jose M Mackey MD [address] [place] [address] [email or web address] documented as of this encounter Results * [...] documented as of this encounter Care Teams Ic Engineer Relationship Specialty Start Date End Date Jose M Mackey MD [address] [place] [address] PCP - General Internal Medicine 05/03/17 Jose M Mackey MD [address] [place] [address] Historical LMR Provider 04/17/17 Angely Buckley NP [address] [place] [address] [email or web address] Historical LMR Provider 04/17/17 Sherrie Dixon MD [address] [place] [address] General Surgery 06/10/20 documented as of this encounter Additional Source Comments The information contained in this document represents components of the legal health record. It is not the complete legal health record.[facility]
== END 2025-04-27 10:12 | disposition home or self-care (01) ==
LOC: HO.PMC 09:34
PROVIDERS: PCP Internal Medicine; Visit Provider Internal Medicine
DX: M25.551 Pain in right hip (principal); M54.16 Radiculopathy, lumbar region
CPT/HCPCS: 99214

== ENCOUNTER 2025-06-06 07:06 | Outpatient (REF) | payer MEDICARE, SELFPAY ==
--- NOTE | ~2025-06-06 | XR_ITS ---
EXAMINATION: XR HIP 1 VIEW RIGHT WITH PELVIS HISTORY: M25.551 - Pain in right hip COMPARISON: There are no prior studies available for comparison. FINDINGS: A single AP view of the pelvis and two views of the right hip are submitted. Osseous mineralization is normal. There is no fracture or dislocation. There is mild joint space narrowing. There is degenerative disc disease of the spine. The soft tissues are unremarkable. XR/XR hip RT w [id number] IMPRESSION: Mild joint space narrowing. Electronically signed by: Cedric Snyder MD 06/06/2025 07:30 AM MARIANNE TAYLOR
--- OUTSIDE RECORDS SUMMARY | 2025-06-06 07:11 | XMS_ITS | Encounter Summary ---
Author Organization [facility] Address [address] [place] [address] Care Team Providers Care Correction Officer Supervisor Name Role Phone Jose M Mackey MD Primary Care Provider [phone] Encounter Details Date Type Department Care Team (Late st Contact Info) Description 10/06/2023 Scanned Document [facility] [address] [phone] Jarrett Jim MD [address] [address] Social History Tobacco Use Types Packs/Day Years [...] on filedocumented in this encounter Care Teams Correction Officer Supervisor Relationship Specialty Start Date End Date Jose M Mackey MD [address] [place] [address] PCP - General Internal Medicine 08/05/23 documented as of this encounter
--- OUTSIDE RECORDS SUMMARY | 2025-06-06 07:12 | XMS_ITS | Clinical Summary ---
Author Organization [facility] Address [address] [place] [address] Care Team Providers Care Veterinarian Small Animal Name Role Phone Jose M Mackey MD Primary Care Provider [phone] Allergies No known active allergies Medications meloxicam [...] Additional history exists COVID-19 Vaccine ( - 2024- season) 2025 07/07/2020, 06/14/2020 RSV Vaccine 50 years and older and Patients (1 - 1-dose 75+ series) 12/08/2026 Hepatitis B Vaccines Aged Out No long er eligible based on patient's age to complete this topic Insurance - [facility] Care Teams Veterinarian Small Animal Relationship Specialty Start Date End Date Jose M Mackey MD [address] [place] [address] PCP - General Internal Medicine 08/05/23
--- OUTSIDE RECORDS SUMMARY | 2025-06-06 07:12 | XMS_ITS | Encounter Summary ---
Author Organization [facility] Address [address] [place] [address] Phone Care Team Providers Care Water And Sewer Systems Superintendent Name Role Phone Jose M Mackey MD Unavailable [phone] Angely Buckley NP Unavailable [phone] Jose M Mackey MD Primary Care Provider [phone] Sherrie Dixon MD Unavailable [phone] Encounter Details Date Type Department Care Team (Late st Contact Info) Description 06/01/2018 Ancillary Orders [facility] Orthopedics & Sports Medicine [address] [place] [address] Lilia Baca MD [address] [place] [address] Orthopedics & Sports Medicine, [facility] [place] [address] [email or web address] Social History Tobacco Use Types Packs/Day Years [...] Description 08/03/2025 1:30 PM EST Office Visit [facility] Internal Medicine [address] [place] [address] Jose M Mackey MD [address] [place] [address] documented as of this encounter Visit Diagnoses Not on filedocumented in this encounter Additional Health Concerns Assessment Noted Time PHQ-2 Depression Total Score: 0 05/09/20 18 1:08 PM EST documented as of this encounter Care Teams Water And Sewer Systems Superintendent Relationship Specialty Start Date End Date Jose M Mackey MD [address] [place] [address] PCP - General Internal Medicine 05/03/17 Jose M Mackey MD [address] [place] [address] Historical LMR Provider 04/17/17 Angely Buckley NP [address] [place] [address] Historical LMR Provider 04/17/17 Sherrie Dixon MD [address] [place] [address] General Surgery 06/10/20 documented as of this encounter Additional Source Comments The information contained in this document represents components of the legal health record. It is not the complete legal health record.[facility]
--- OUTSIDE RECORDS SUMMARY | 2025-06-06 07:12 | XMS_ITS | Encounter Summary ---
Author Organization [facility] Address [address] [place] [address] Phone Care Team Providers Care Manufacturing Process Technician Name Role Phone Jose M Mackey MD Unavailable [phone] Angely Buckley NP Unavailable [phone] Jose M Mackey MD Primary Care Provider [phone] Sherrie Dixon MD Unavailable [phone] Encounter Details Date Type Department Care Team (Late st Contact Info) Description 08/31/2024 Documentation [facility] Internal Medicine [address] [place], [place] [phone] Jose M Mackey MD 40 [place] [address] [email or web address] Social History Tobacco Use Types Packs/Day Years [...] Description 08/03/2025 1:30 PM EST Office Visit [facility] Internal Medicine [address] [place] [address] Jose M Mackey MD 40 [place] [address] [email or web address] documented as of this encounter Visit Diagnoses Not on filedocumented in this encounter Additional Health Concerns Assessment Noted Time PHQ-2 Depression Total Score: 2 08/17/19 25 2:24 PM EST documented as of this encounter Care Teams Manufacturing Process Technician Relationship Specialty Start Date End Date Jose M Mackey MD [address] [place] [address] PCP - General Internal Medicine 05/03/17 Jose M Mackey MD 40 [place] [address] Historical LMR Provider 04/17/17 Angely Buckley NP [address] [place] [address] Historical LMR Provider 04/17/17 Sherrie Dixon MD [address] [place] [address] General Surgery 06/10/20 documented as of this encounter Additional Source Comments The information contained in this document represents components of the legal health record. It is not the complete legal health record.[facility]
--- OUTSIDE RECORDS SUMMARY | 2025-06-06 07:12 | XMS_ITS | Encounter Summary ---
Author Organization [facility] Address [address] [place] [address] Care Team Providers Care Egg Packer Name Role Phone Jose M Mackey MD Primary Care Provider [phone] Encounter Details Date Type Department Care Team (Late st Contact Info) Description 10/19/2023 Scanned Document [facility] [address] [phone] Jarrett Jim MD [address] [place] [address] Social History Tobacco Use Types Packs/Day Years [...] on filedocumented in this encounter Care Teams Egg Packer Relationship Specialty Start Date End Date Jose M Mackey MD [address] [place] [address] PCP - General Internal Medicine 08/05/23 documented as of this encounter
--- OUTSIDE RECORDS SUMMARY | 2025-06-06 07:12 | XMS_ITS | Encounter Summary ---
Author Organization [facility] Address [address] [place] [address] Phone Care Team Providers Care Director Quality Assurance Name Role Phone Jose M Mackey MD Unavailable [phone] Angely Buckley NP Unavailable [phone] Jose M Mackey MD Primary Care Provider [phone] Sherrie Dixon MD Unavailable [phone] Encounter Details Date Type Department Care Team (Late st Contact Info) Description 06/01/2018 Ancillary Orders [address] [address] Lilia Baca MD [address] [place] [address] Orthopedics & Sports Medicine, [facility] [place] [address] [email or web address] Left knee pain, unspecified chronicity [...] Description 08/03/2025 1:30 PM EST Office Visit [facility] Internal Medicine [address] [place] [address] Jose M Mackey MD [address] [place] [address] [email or web address] documented as of this encounter Results * [...] documented as of this encounter Care Teams Director Quality Assurance Relationship Specialty Start Date End Date Jose M Mackey MD [address] [place] [address] PCP - General Internal Medicine 05/03/17 Jose M Mackey MD [address] [place] [address] Historical LMR Provider 04/17/17 Angely Buckley NP [address] [place] [address] [email or web address] Historical LMR Provider 04/17/17 Sherrie Dixon MD [address] [place] [address] General Surgery 06/10/20 documented as of this encounter Additional Source Comments The information contained in this document represents components of the legal health record. It is not the complete legal health record.[facility]
--- OUTSIDE RECORDS SUMMARY | 2025-06-06 07:13 | XMS_ITS | Encounter Summary ---
Author Organization [facility] Address [address] [place] [address] Care Team Providers Care Packing Line Worker Name Role Phone Jose M Mackey MD Primary Care Provider [phone] Encounter Details Date Type Department Care Team (Late st Contact Info) Description 09/21/2023 Scanned Document [facility] [address] [phone] Jarrett Jim MD [address] [place] [address] Social History Tobacco Use Types Packs/Day Years [...] on filedocumented in this encounter Care Teams Packing Line Worker Relationship Specialty Start Date End Date Jose M Mackey MD [address] [place] [address] PCP - General Internal Medicine 08/05/23 documented as of this encounter
--- OUTSIDE RECORDS SUMMARY | 2025-06-06 07:13 | XMS_ITS | Encounter Summary ---
Author Organization [facility] Address [address] [place] [address] Care Team Providers Care Framing Mill Operator Name Role Phone Jose M Mackey MD Primary Care Provider [phone] Encounter Details Date Type Department Care Team (Late st Contact Info) Description 09/24/2023 Scanned Document [facility] [address] [phone] Jarrett Jim MD [address] [place] [address] Social History Tobacco Use Types Packs/Day Years [...] on filedocumented in this encounter Care Teams Framing Mill Operator Relationship Specialty Start Date End Date Jose M Mackey MD [address] [place] [address] PCP - General Internal Medicine 08/05/23 documented as of this encounter
--- OUTSIDE RECORDS SUMMARY | 2025-06-06 07:13 | XMS_ITS | Clinical Summary ---
Author Organization [facility] Address [address] [place] [address] Phone Care Team Providers Care Staff Nuclear Medicine Technologist Name Role Phone Jose M Mackey MD Unavailable [phone] Angely Buckley NP Unavailable [phone] Jose M Mackey MD Primary Care Provider [phone] Sherrie Dixon MD Unavailable [phone] Allergies No known active allergies Medications vitamins A,C,I-fakp-ycptqj (PRESERVISION AREDS) 4,296 mcg-226 mg-90 mg Cap Take 1 capsule by mouth 2 (two) times a day with meals. Active sildenafiL (VIAGRA) 100 mg tabletIndications:Erect ile [...] EVERY DAY 90 tablet 3 025 Active amoxicillin (AMOXIL) 500 MG tablet TAKE 4 TABLETS 1 HOUR PRIOR TO DENTAL APPOINTMENT AND 2 TABLETS 6 HOURS AFTER DENTAL APPOINTMENT 025 2025 Active valsartan (DIOVAN) 160 MG tabletIndications:Prima ry hypertension Take 1 tablet (160 mg total) by mouth 2 (two) times a day. 180 tablet 3 025 Active Active Problems Problem Noted Date Diagnosed Date Hypertension 05/03/2017 Impaired fasting glucose 05/03/2017 Chronic pain of left knee 05/03/2017 Obstructive sleep apnea syndrome 05/03/2017 Encounters Date Type Department Care Team Description 05/28/2025 Telephone [facility] Internal Medicine [address] [place] [address] Jose M Mackey MD medical supplies 05/01/2025 Telephone [facility] Internal Medicine [address] [facility] [place] [address] Jose M Mackey MD CPAP Equipment 04/13/2025 3:30 PM EDT Office Visit [facility] Internal [facility] [address] [place] [address] Jose M Mackey MD Class 2 severe obesity due to excess calories with serious comorbidity and body mass index (BMI) of 35.0 to 35.9 in adult (Primary Dx); Primary hypertension; Need for prophylactic vaccination and inoculation against influenza; Screening for prostate cancer; Impaired fasting blood sugar; Pure hypercholesterolemia 03/19/2025 Telephone [facility] Internal Medicine [address] [place] [address] Jose M Mackey MD from Last 3 Months Immunizations Immunization Administration [...] Description 08/03/2025 1:30 PM EST Office Visit [facility] Internal Medicine [address] [place] [address] Jose M Mackey MD [address] [place] [address] [email or web address] Health Maintenance Due Date Last Done Comments COLOGUARD 12/08/1996 FIT TEST 12/08/1996 FOBT 12/08/1996 SIGMOIDOSCOPY 12/08/1996 VIRTUAL COLONOSCOPY 12/08/1996 COVID-19 VACCINE (2024- season) 2025 05/08/2024, 07/16/2023, 06/25/2022, Additional history [...] - 5.0 mmol/L EXTERNAL NON-INTERFACED REF LAB [facility] Provider MD LAB BLOOD ORDERABLES Cris l Result Performing Organization Address [facility] de Phone Number EXTERNAL NON-INTERFACED REF LAB * Outside Serum Creatinine Level (07/06/2024) Creatinine, serum - External 0.83 0.8 - 1.3 mg/dL EXTERNAL NON-INTERFACED REF LAB Result [facility] Provider MD LAB BLOOD ORDERABLES Cris l Result Performing Organization Address [facility] Co de Phone Number EXTERNAL NON-INTERFACED REF LAB * (ABNORMAL) Outside HDL (07/06/2024) HDL - External 37(A) 40 - 80 mg/dL EXTERNAL NON-INTERFACED REF LAB [facility] Provider MD LAB BLOOD ORDERABLES Cris l Result Performing Organization Address [facility] Co de Phone Number EXTERNAL NON-INTERFACED REF LAB * CT Abdomen/Pelvis (07/09/2023 2:45 PM EST) Anatomical Region Laterality Modality Abdomen, Pelvis CT Diagnostic Jose M Mackey MD IMG CT ABD/PELVIS Final Resul t * HM COLONOSCOPY FOR RESULT ENTRY ONLY (05/16/2020) Historical Provider HEALTH MAINTENANCE Final Result * Outside Hepatitis C Virus Screening (04/30/2020) Hepatitis C Screening - External Neg Historical Provider LAB BLOOD ORDERABLES Cris l Result from Last 3 Months or Most Recently Relevant to Health Maintenance Insurance 1[employer] 1EQ ADMINISTRATORS Hello! [employer] BENEF[employer] ADMINISTRATORS Hello! [employer] BENEFITS ADMINISTRATORS Hello! [employer] BENEFITS ADMINISTRATORS 1EQ ADMINISTRATORS 1EQ ADMINISTRATORS 1EQ ADMINISTRATORS 1EQ ADMINISTRATORS Care Teams Staff Nuclear Medicine Technologist Relationship Specialty Start Date End Date Jose M Mackey MD [address] [place] [address] [email or web address] PCP - General Internal Medicine 05/03/17 Jose M Mackey MD [address] [place] [address] [email or web address] Historical LMR Provider 04/17/17 Angely Buckley NP [address] [place] [address] [email or web address] Historical LMR Provider 04/17/17 Sherrie Dixon MD [address] [place] [address] General Surgery 06/10/20 Additional Source Comments The information contained in this document represents components of the legal health record. It is not the complete legal health record.[facility]
== END 2025-06-06 07:07 | disposition home or self-care (01) ==
LOC: HO.XRAY 07:06
PROVIDERS: PCP Internal Medicine; Visit Provider Internal Medicine
DX: M25.551 Pain in right hip (principal)
CPT/HCPCS: 73502

== ENCOUNTER → 2025-06-06 07:11 | Outpatient (BNV) | payer MEDICARE, SELFPAY | PROVIDERS: PCP Internal Medicine; Visit Provider Radiology Diagnostic Radiology | DX: M16.11 Unilateral primary osteoarthritis, right hip (principal) | CPT/HCPCS: 73502 ==